=== PATIENT | male | born 1955 | race Caucasian/White ===

== ENCOUNTER 2023-08-14 08:52 | Inpatient (IN) | payer OTHER ==
[2023-08-11 09:54] LABS: Absolute Eosinophils 0.1 K/uL (0-0.5); Absolute Lymphocytes (CBC) 1.7 K/uL (0.7-4.9); Absolute Monocytes 0.7 K/uL (0.1-1.3); Basophils % 0.5 % (0-1.3); Eosinophils % 1.9 % (0-4.4); Hemoglobin 17.9 g/dL (13.6-17.9); Lymphocytes % 22.4 % (15.3-44.8); MCHC 34.4 g/dL (32.0-36.0); Monocytes % 8.9 % (3.3-12.3); Neutrophils % 66.3 % (41.7-73.7); Platelets 206 thou/uL (152-406); RBC Red Blood Cell Count 5.41 M/uL (4.33-5.43); Red Cell Distribution Width 12.2 % (12.1-15.2)
[2023-08-11 10:10] LABS: PT Prothrombin Time 10.1 SECONDS (9.5-12.5); PTT, Activated Partial Thromb 34.1 SECONDS (24.3-36.9); Protime INR 0.92
--- NOTE | 2023-08-11 10:13 | RAD REPORT ---
EXAM DESCRIPTION: RAD - Chest Pa And Lat (2 Views) - 08/11/2023 9:53 am CLINICAL HISTORY: Pre op pending heart catheterization Chest pain. COMPARISON: No comparisons FINDINGS: The lungs are clear. The heart is normal in size. No displaced fractures. IMPRESSION: No acute or concerning finding suspected. The [employer]PSTF recommends annual screening for lung cancer with low-dose CT (LDCT) in adults aged 50 to 80 years who have a 20 pack-year smoking history and currently smoke or have quit within the past 15 years.
[2023-08-14] MEDS: NA CHLORIDE 0.9% 500 ML ONE (09:20)
[2023-08-14] MEDS ORDERED: HEPA 1000U/500MLS 2,000 UNIT/1,000 ML BAG IV ONE (12:45)
[2023-08-14] MEDS ORDERED: LIDOCAINE 1% 20 ML MDV ONE (12:45)
[2023-08-14] MEDS ORDERED: FENTANYL CITR 100 MCG/2 ML ONE (12:46)
[2023-08-14] MEDS ORDERED: VERAPAMIL HCL 10 MG/4 ML VIAL IV ONE (12:46)
[2023-08-14] MEDS ORDERED: TICAGRELOR 90 MG TABLET PO ONE ×2 (12:47→20:06)
[2023-08-14] MEDS ORDERED: MIDAZOLAM HCL 2 MG/2 ML INJ ONE (12:47)
[2023-08-14] MEDS ORDERED: HEPARIN 5000 UNIT/ML 1 ML VIAL ONE (12:47)
[2023-08-14] MEDS ORDERED: HEPARIN 10,000 UNIT/10 ML VIAL IV ONE ×2 (12:47→15:16)
[2023-08-14] MEDS ORDERED: CLOPIDOGREL 75 MG TABLET ONE (12:47)
[2023-08-14] MEDS ORDERED: METHYLPREDNISOLONE 125 MG INJ ONE (12:48)
[2023-08-14] MEDS ORDERED: DIPHENHYDRAMINE 50 MG/ML VIAL ONE (12:48)
[2023-08-14] MEDS ORDERED: ASPIRIN 325 MG TAB ONE (12:48)
[2023-08-14] MEDS ORDERED: NITROGLYCERIN/D5W 50 MG/250 ML BTL IV ONE (12:49)
[2023-08-14] MEDS ORDERED: D5W 250 ML IV ONE (14:50)
[2023-08-14] MEDS ORDERED: NITROPRUSSIDE 50 MG VIAL IV ONE (14:51)
[2023-08-14] MEDS ORDERED: ADENOSINE 6 MG/ 2ML VIAL IV ONE (15:03)
[2023-08-14] MEDS ORDERED: NA CHLORIDE 0.9% 500 ML ONE (15:06)
[2023-08-14] MEDS ORDERED: FAMOTIDINE 20 MG TAB ONE (15:23)
[2023-08-14] MEDS ORDERED: ONDANSETRON 4 MG/2 ML VIAL ONE (15:24)
[2023-08-14] MEDS ORDERED: NITROGLYCERIN 0.4 MG/TAB SL ONE (15:27)
[2023-08-14] MEDS: NITROGLYCERIN 1 GM PKT TD ONE (15:52)
--- OUTSIDE RECORDS SUMMARY | 2023-08-14 16:04 | XMS REPORT | Continuity of Care Document ---
Author Name Unknown Address [address] [place] [address] [facility] thconnect Address [address] [facility] [address] [place] [address] Care Team Providers Care Kitchen Assistant Name Role Phone Tom Beard Attending Clinician Unavailable Adriana MIKE Attending Clinician Unavailable Payers Payer Name Policy Type Policy Number Effective Date Expirati on Date Source [place] [address] [id number] 2017 00:00:00 [facility] Problems Condition Name Condition Details Condition Category Status Onset Date Resolution Date Last Treatment Date Treating Clinician Comments Source [id number] History of melanoma Problem [facility] Type II diabetes mellitus without complicati on Controlled type 2 diabetes mellitus without complicati on, without long-term current use of insulin Problem [facility] [id number] Subclinica l hypothyroi dism Problem [facility] [id number] 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, without long-term current use of insulin Problem [facility] [id number] Diabetic polyneurop athy associated with type 2 diabetes mellitus Problem [facility] Obesity Obesity (BMI 30-39.9) Problem [facility] [id number] Skin lesion of left leg Problem [facility] Adult health examinatio n Blood tests for routine general physical examinatio n Problem [facility] [id number] Hyperglyce ike Problem [facility] [id number] Encounter for general adult medical examinatio n without abnormal findings Problem [facility] Hyperlipid emia Other hyperlipid emia Problem [facility] [id number] Paresthesi a of skin Problem [facility] Hypertensi on Hypertensi on Problem [facility] Screening for malignant neoplasm of prostate Prostate cancer screening Problem [facility] [id number] Nocturia Problem Commo n [facility] [id number] Benign prostatic hyperplasi a with lower urinary tract symptoms Problem [facility] [id number] Left leg claudicati on Problem [facility] Social History Social Habit Start Date Stop Date Quantity Comments Source History of Tobacco Use [facility] Sex Assigned At [facility] Smoking Status Start Date Stop Date Source Never Smoker [facility] Medications Ordered Medication Name Filled Medication Name Start Date Stop Date Current Medication? Ordering Clinician Indication Dosage Frequency Signature (SIG) Comments Components Source Ozempic (2 MG/DOSE) 8 MG/3ML Ozempic (2 MG/DOSE) 8 MG/3ML 2022-06 0-09 00:00: 00 No Ozempic (2 MG/DOSE) 8 MG/3ML Ozempic (2 MG/DOSE) 8 MG/3ML Ozempic (2 MG/DOSE) 8 MG/3ML 2022-06 0-09 00:00: 00 No Ozempic (2 MG/DOSE) 8 MG/3ML Ozempic (2 MG/DOSE) 8 MG/3ML Ozempic (2 MG/DOSE) 8 MG/3ML 2022-06 0-09 00:00: 00 No Ozempic (2 MG/DOSE) 8 MG/3ML Ozempic (2 MG/DOSE) 8 MG/3ML Ozempic (2 MG/DOSE) 8 MG/3ML 2022-06 0-09 00:00: 00 No Ozempic (2 MG/DOSE) 8 MG/3ML Ozempic (2 MG/DOSE) 8 MG/3ML Ozempic (2 MG/DOSE) 8 MG/3ML 2023-1 0-09 00:00: 00 No Ozempic (2 MG/DOSE) 8 MG/3ML Ozempic (2 MG/DOSE) 8 MG/3ML Ozempic (2 MG/DOSE) 8 MG/3ML 2023-1 009 00:00: 00 No Ozempic (2 MG/DOSE) 8 MG/3ML Ozempic (2 MG/DOSE) 8 MG/3ML Ozempic (2 MG/DOSE) 8 MG/3ML 2023-1 009 00:00: 00 No Ozempic (2 MG/DOSE) 8 MG/3ML Ozempic (2 MG/DOSE) 8 MG/3ML Ozempic (2 MG/DOSE) 8 MG/3ML 2023-1 009 00:00: 00 No Ozempic (2 MG/DOSE) 8 MG/3ML Ozempic (2 MG/DOSE) 8 MG/3ML Ozempic (2 MG/DOSE) 8 MG/3ML 2023-1 009 00:00: 00 No Ozempic (2 MG/DOSE) 8 MG/3ML Ozempic (2 MG/DOSE) 8 MG/3ML Ozempic (2 MG/DOSE) 8 MG/3ML 2023-1 009 00:00: 00 No Ozempic (2 MG/DOSE) 8 MG/3ML Ozempic (1 MG/DOSE) 4 MG/3ML Ozempic (1 MG/DOSE) 4 MG/3ML 2023-0 8-04 00:00: 00 No Ozempic (1 MG/DOSE) 4 MG/3ML Ozempic (1 MG/DOSE) 4 MG/3ML Ozempic (1 MG/DOSE) 4 MG/3ML 2023-0 8-04 00:00: 00 No Ozempic (1 MG/DOSE) 4 MG/3ML Ozempic (1 MG/DOSE) 4 MG/3ML Ozempic (1 MG/DOSE) 4 MG/3ML 2023-0 8-04 00:00: 00 No Ozempic (1 MG/DOSE) 4 MG/3ML Triamcinolo ne Acetonide 0.1 % Triamcinolo ne Acetonide 0.1 % 3-0 -06 00:00: 00 No 1{appli cation} BID Triamcinol one Acetonide 0.1 % Triamcinolo ne Acetonide 0.1 % Triamcinolo ne Acetonide 0.1 % 2022-0 1- 00:00: 00 No 1{appli cation} BID Triamcinol one Acetonide 0.1 % Triamcinolo ne Acetonide 0.1 % Triamcinolo ne Acetonide 0.1 % 3-0 - 00:00: 00 No 1{appli cation} BID Triamcinol one Acetonide 0.1 % Triamcinolo ne Acetonide 0.1 % Triamcinolo ne Acetonide 0.1 % 2022-0 - 00:00: 00 No 1{appli cation} BID Triamcinol one Acetonide 0.1 % Triamcinolo ne Acetonide 0.1 % Triamcinolo ne Acetonide 0.1 % 2022-0 - 00:00: 00 No 1{appli cation} BID Triamcinol one Acetonide 0.1 % Triamcinolo ne Acetonide 0.1 % Triamcinolo ne Acetonide 0.1 % 2022-0 - 00:00: 00 No 1{appli cation} BID Triamcinol one Acetonide 0.1 % Triamcinolo ne Acetonide 0.1 % Triamcinolo ne Acetonide 0.1 % 2022-0 - 00:00: 00 No 1{appli cation} BID Triamcinol one Acetonide 0.1 % Triamcinolo ne Acetonide 0.1 % Triamcinolo ne Acetonide 0.1 % 2022-0 - 00:00: 00 No 1{appli cation} BID Triamcinol one Acetonide 0.1 % Triamcinolo ne Acetonide 0.1 % Triamcinolo ne Acetonide 0.1 % 3-0 1- 00:00: 00 No 1{appli cation} BID Triamcinol one Acetonide 0.1 % Triamcinolo ne Acetonide 0.1 % Triamcinolo ne Acetonide 0.1 % 06-07 00:00: 00 No 1{appli cation} BID Triamcinol one Acetonide 0.1 % Triamcinolo ne Acetonide 0.1 % Triamcinolo ne Acetonide 0.1 % 06-07 00:00: 00 No 1{appli cation} BID Triamcinol one Acetonide 0.1 % methylPREDN ISolone 4 MG methylPREDN ISolone 4 MG 06-07 00:00: 00 06-13 00:00 :00 No QD methylPRED NISolone 4 MG Tamsulosin HCl 0.4 MG Tamsulosin HCl 0.4 MG 2020-06 00:00: 00 11-04 00:00 :00 No 1{capsu le} QD Tamsulosin HCl 0.4 MG Terbinafine HCl Terbinafine HCl 2018-06 1 00:00: 00 07-04 00:00 :00 No Na Mike 1 tablet [facility] Glyxambi Glyxambi 7- 00:00: 00 06-28 00:00 :00 No Na Mike 1 [facility] Jardiance Jardiance Yes Na Mike TAKE ONE (1) TABLET(S) BY MOUTH ONCE A DAY IN THE MORNING. [facility] Glimepiride Glimepiride Yes Na Mike 1 tablet with breakfast or the first main meal of the day [facility] Hyzaar Hyzaar Yes Na Mike 1 tablet [facility] Lovastatin Lovastatin Yes Na Mike 1 tablet with a meal [facility] FreeStyle Lite Test FreeStyle Lite Test Yes Na Mike USE DIRECTED TO CHECK GLUCOSE ONCE A DAY. [facility] Metformin HCl Metformin HCl Yes Na Mike 1 tablet with meals [facility] Metoprolol Succinate ER Metoprolol Succinate ER Yes Na Mike 1 tablet [facility] Metformin HCl Metformin HCl Yes Na Mike 1 tablet with meals [facility] Metoprolol Succinate ER 50 MG Metoprolol Succinate ER 50 MG No 1{table t} QD Metoprolol Succinate ER 50 MG Glimepiride 4 MG Glimepiride 4 MG No Glimepirid e 4 MG Losartan Potassium-H CTZ 100-25 MG Losartan Potassium-H CTZ 100-25 MG No Losartan Potassium- HCTZ 100-25 MG Vitamin C Vitamin C No Vitamin C FreeStyle Lite Test - FreeStyle Lite Test - No FreeStyle Lite Test - Glyxambi 25-5 MG Glyxambi 25-5 MG No Glyxambi 25-5 MG Vitamin D Vitamin D No Vitamin D Multivitami n - Multivitami n - No 1{table t} QD Multivitam in - metFORMIN HCl 1000 MG metFORMIN HCl 1000 MG No 1{table t_with_ meals} BID metFORMIN HCl 1000 MG Glimepiride 4 MG Glimepiride 4 MG No 1{table t_with_ breakfa st_or_t he_firs t_main_ meal_of _the_da y} QD Glimepirid e 4 MG Metoprolol Succinate ER 50 MG Metoprolol Succinate ER 50 MG No Metoprolol Succinate ER 50 MG Fish Oil 500 MG Fish Oil 500 MG No 1{capsu le} BID Fish Oil 500 MG Vitamin K2 Vitamin K2 No Vitamin K2 metFORMIN HCl 1000 MG metFORMIN HCl 1000 MG No metFORMIN HCl 1000 MG Hyzaar 100-25 MG Hyzaar 100-25 MG No 1{table t} QD Hyzaar 100-25 MG Metoprolol Succinate ER 50 MG Metoprolol Succinate ER 50 MG No 1{table t} QD Metoprolol Succinate ER 50 MG Glimepiride 4 MG Glimepiride 4 MG No Glimepirid e 4 MG Losartan Potassium-H CTZ 100-25 MG Losartan Potassium-H CTZ 100-25 MG No Losartan Potassium- HCTZ 100-25 MG Vitamin C Vitamin C No Vitamin C FreeStyle Lite Test - FreeStyle Lite Test - No FreeStyle Lite Test - Glyxambi 25-5 MG Glyxambi 25-5 MG No Glyxambi 25-5 MG Vitamin D Vitamin D No Vitamin D Multivitami n - Multivitami n - No 1{table t} QD Multivitam in - metFORMIN HCl 1000 MG metFORMIN HCl 1000 MG No 1{table t_with_ meals} BID metFORMIN HCl 1000 MG Glimepiride 4 MG Glimepiride 4 MG No 1{table t_with_ breakfa st_or_t he_firs t_main_ meal_of _the_da y} QD Glimepirid e 4 MG Metoprolol Succinate ER 50 MG Metoprolol Succinate ER 50 MG No Metoprolol Succinate ER 50 MG Fish Oil 500 MG Fish Oil 500 MG No 1{capsu le} BID Fish Oil 500 MG Vitamin K2 Vitamin K2 No Vitamin K2 metFORMIN HCl 1000 MG metFORMIN HCl 1000 MG No metFORMIN HCl 1000 MG Hyzaar 100-25 MG Hyzaar 100-25 MG No 1{table t} QD Hyzaar 100-25 MG Fish Oil 500 MG Fish Oil 500 MG No 1{capsu le} BID Fish Oil 500 MG Metoprolol Succinate ER 50 MG Metoprolol Succinate ER 50 MG No 1{table t} QD Metoprolol Succinate ER 50 MG Multivitami n - Multivitami n - No 1{table t} QD Multivitam in - Vitamin K2 Vitamin K2 No Vitamin K2 Glimepiride 4 MG Glimepiride 4 MG No 1{table t_with_ breakfa st_or_t he_firs t_main_ meal_of _the_da y} QD Glimepirid e 4 MG Vitamin C Vitamin C No Vitamin C metFORMIN HCl 1000 MG metFORMIN HCl 1000 MG No 1{table t_with_ meals} BID metFORMIN HCl 1000 MG Losartan Potassium-H CTZ 100-25 MG Losartan Potassium-H CTZ 100-25 MG No Losartan Potassium- HCTZ 100-25 MG Vitamin D Vitamin D No Vitamin D Glyxambi 25-5 MG Glyxambi 25-5 MG No Glyxambi 25-5 MG FreeStyle Lite Test - FreeStyle Lite Test - No FreeStyle Lite Test - FreeStyle Lite Test - FreeStyle Lite Test - No FreeStyle Lite Test - Gabapentin 100 MG Gabapentin 100 MG No 1{capsu le} Gabapentin 100 MG Multivitami n - Multivitami n - No 1{table t} QD Multivitam in - Losartan Potassium-H CTZ 100-25 MG Losartan Potassium-H CTZ 100-25 MG No Losartan Potassium- HCTZ 100-25 MG Fish Oil 500 MG Fish Oil 500 MG No 1{capsu le} BID Fish Oil 500 MG metFORMIN HCl 1000 MG metFORMIN HCl 1000 MG No 1{table t_with_ a_meal} BID metFORMIN HCl 1000 MG Glimepiride 4 MG Glimepiride 4 MG No 1{table t_with_ meals} BID Glimepirid e 4 MG Vitamin K2 Vitamin K2 No Vitamin K2 Jardiance 25 MG Jardiance 25 MG No 1{table t} QD Jardiance 25 MG Hyzaar 100-25 MG Hyzaar 100-25 MG No 1{table t} QD Hyzaar 100-25 MG Vitamin D Vitamin D No Vitamin D Vitamin C Vitamin C No Vitamin C Metoprolol Succinate ER 50 MG Metoprolol Succinate ER 50 MG No 1{table t} QD Metoprolol Succinate ER 50 MG FreeStyle Lite Test - FreeStyle Lite Test - No FreeStyle Lite Test - Gabapentin 100 MG Gabapentin 100 MG No 1{capsu le} Gabapentin 100 MG Multivitami n - Multivitami n - No 1{table t} QD Multivitam in - Losartan Potassium-H CTZ 100-25 MG Losartan Potassium-H CTZ 100-25 MG No Losartan Potassium- HCTZ 100-25 MG Fish Oil 500 MG Fish Oil 500 MG No 1{capsu le} BID Fish Oil 500 MG metFORMIN HCl 1000 MG metFORMIN HCl 1000 MG No 1{table t_with_ a_meal} BID metFORMIN HCl 1000 MG Glimepiride 4 MG Glimepiride 4 MG No 1{table t_with_ meals} BID Glimepirid e 4 MG Vitamin K2 Vitamin K2 No Vitamin K2 Jardiance 25 MG Jardiance 25 MG No 1{table t} QD Jardiance 25 MG Hyzaar 100-25 MG Hyzaar 100-25 MG No 1{table t} QD Hyzaar 100-25 MG Vitamin D Vitamin D No Vitamin D Vitamin C Vitamin C No Vitamin C Metoprolol Succinate ER 50 MG Metoprolol Succinate ER 50 MG No 1{table t} QD Metoprolol Succinate ER 50 MG FreeStyle Lite Test - FreeStyle Lite Test - No FreeStyle Lite Test - Gabapentin 100 MG Gabapentin 100 MG No 1{capsu le} Gabapentin 100 MG Multivitami n - Multivitami n - No 1{table t} QD Multivitam in - Losartan Potassium-H CTZ 100-25 MG Losartan Potassium-H CTZ 100-25 MG No Losartan Potassium- HCTZ 100-25 MG Fish Oil 500 MG Fish Oil 500 MG No 1{capsu le} BID Fish Oil 500 MG metFORMIN HCl 1000 MG metFORMIN HCl 1000 MG No 1{table t_with_ a_meal} BID metFORMIN HCl 1000 MG Glimepiride 4 MG Glimepiride 4 MG No 1{table t_with_ meals} BID Glimepirid e 4 MG Vitamin K2 Vitamin K2 No Vitamin K2 Jardiance 25 MG Jardiance 25 MG No 1{table t} QD Jardiance 25 MG Hyzaar 100-25 MG Hyzaar 100-25 MG No 1{table t} QD Hyzaar 100-25 MG Vitamin D Vitamin D No Vitamin D Vitamin C Vitamin C No Vitamin C Metoprolol Succinate ER 50 MG Metoprolol Succinate ER 50 MG No 1{table t} QD Metoprolol Succinate ER 50 MG FreeStyle Lite Test - FreeStyle Lite Test - No FreeStyle Lite Test - Metoprolol Succinate ER 50 MG Metoprolol Succinate ER 50 MG No 1{table t} QD Metoprolol Succinate ER 50 MG Ozempic (1 MG/DOSE) 4 MG/3ML Ozempic (1 MG/DOSE) 4 MG/3ML No Ozempic (1 MG/DOSE) 4 MG/3ML Multivitami n - Multivitami n - No 1{table t} QD Multivitam in - Losartan Potassium-H CTZ 100-25 MG Losartan Potassium-H CTZ 100-25 MG No Losartan Potassium- HCTZ 100-25 MG Fish Oil 500 MG Fish Oil 500 MG No 1{capsu le} BID Fish Oil 500 MG Glimepiride 4 MG Glimepiride 4 MG No 1{table t_with_ meals} BID Glimepirid e 4 MG Gabapentin 100 MG Gabapentin 100 MG No 1{capsu le} Gabapentin 100 MG Vitamin K2 Vitamin K2 No Vitamin K2 Hyzaar 100-25 MG Hyzaar 100-25 MG No 1{table t} QD Hyzaar 100-25 MG Jardiance 25 MG Jardiance 25 MG No 1{table t} QD Jardiance 25 MG metFORMIN HCl 1000 MG metFORMIN HCl 1000 MG No 1{table t_with_ a_meal} BID metFORMIN HCl 1000 MG Vitamin D Vitamin D No Vitamin D Vitamin C Vitamin C No Vitamin C FreeStyle Lite Test - FreeStyle Lite Test - No FreeStyle Lite Test - Metoprolol Succinate ER 50 MG Metoprolol Succinate ER 50 MG No 1{table t} QD Metoprolol Succinate ER 50 MG Ozempic (1 MG/DOSE) 4 MG/3ML Ozempic (1 MG/DOSE) 4 MG/3ML No Ozempic (1 MG/DOSE) 4 MG/3ML Multivitami n - Multivitami n - No 1{table t} QD Multivitam in - Losartan Potassium-H CTZ 100-25 MG Losartan Potassium-H CTZ 100-25 MG No Losartan Potassium- HCTZ 100-25 MG Fish Oil 500 MG Fish Oil 500 MG No 1{capsu le} BID Fish Oil 500 MG Glimepiride 4 MG Glimepiride 4 MG No 1{table t_with_ meals} BID Glimepirid e 4 MG Gabapentin 100 MG Gabapentin 100 MG No 1{capsu le} Gabapentin 100 MG Vitamin K2 Vitamin K2 No Vitamin K2 Hyzaar 100-25 MG Hyzaar 100-25 MG No 1{table t} QD Hyzaar 100-25 MG Jardiance 25 MG Jardiance 25 MG No 1{table t} QD Jardiance 25 MG metFORMIN HCl 1000 MG metFORMIN HCl 1000 MG No 1{table t_with_ a_meal} BID metFORMIN HCl 1000 MG Vitamin D Vitamin D No Vitamin D Vitamin C Vitamin C No Vitamin C FreeStyle Lite Test - FreeStyle Lite Test - No FreeStyle Lite Test - Metoprolol Succinate ER 50 MG Metoprolol Succinate ER 50 MG No 1{table t} QD Metoprolol Succinate ER 50 MG Ozempic (1 MG/DOSE) 4 MG/3ML Ozempic (1 MG/DOSE) 4 MG/3ML No Ozempic (1 MG/DOSE) 4 MG/3ML Multivitami n - Multivitami n - No 1{table t} QD Multivitam in - Losartan Potassium-H CTZ 100-25 MG Losartan Potassium-H CTZ 100-25 MG No Losartan Potassium- HCTZ 100-25 MG Fish Oil 500 MG Fish Oil 500 MG No 1{capsu le} BID Fish Oil 500 MG Glimepiride 4 MG Glimepiride 4 MG No 1{table t_with_ meals} BID Glimepirid e 4 MG Gabapentin 100 MG Gabapentin 100 MG No 1{capsu le} Gabapentin 100 MG Vitamin K2 Vitamin K2 No Vitamin K2 Hyzaar 100-25 MG Hyzaar 100-25 MG No 1{table t} QD Hyzaar 100-25 MG Jardiance 25 MG Jardiance 25 MG No 1{table t} QD Jardiance 25 MG metFORMIN HCl 1000 MG metFORMIN HCl 1000 MG No 1{table t_with_ a_meal} BID metFORMIN HCl 1000 MG Vitamin D Vitamin D No Vitamin D Vitamin C Vitamin C No Vitamin C Metoprolol Succinate ER 50 MG Metoprolol Succinate ER 50 MG No 1{table t} QD Metoprolol Succinate ER 50 MG Ozempic (1 MG/DOSE) 4 MG/3ML Ozempic (1 MG/DOSE) 4 MG/3ML No Ozempic (1 MG/DOSE) 4 MG/3ML Multivitami n - Multivitami n - No 1{table t} QD Multivitam in - Losartan Potassium-H CTZ 100-25 MG Losartan Potassium-H CTZ 100-25 MG No Losartan Potassium- HCTZ 100-25 MG Fish Oil 500 MG Fish Oil 500 MG No 1{capsu le} BID Fish Oil 500 MG FreeStyle Lite Test - FreeStyle Lite Test - No FreeStyle Lite Test - Gabapentin 100 MG Gabapentin 100 MG No 1{capsu le} Gabapentin 100 MG Vitamin K2 Vitamin K2 No Vitamin K2 metFORMIN HCl 1000 MG metFORMIN HCl 1000 MG No 1{table t_with_ a_meal} BID metFORMIN HCl 1000 MG Jardiance 25 MG Jardiance 25 MG No 1{table t} QD Jardiance 25 MG Glimepiride 4 MG Glimepiride 4 MG No 1{table t_with_ meals} BID Glimepirid e 4 MG Vitamin D Vitamin D No Vitamin D Vitamin C Vitamin C No Vitamin C Hyzaar 100-25 MG Hyzaar 100-25 MG No 1{table t} QD Hyzaar 100-25 MG Metoprolol Succinate ER 50 MG Metoprolol Succinate ER 50 MG No 1{table t} QD Metoprolol Succinate ER 50 MG Ozempic (1 MG/DOSE) 4 MG/3ML Ozempic (1 MG/DOSE) 4 MG/3ML No Ozempic (1 MG/DOSE) 4 MG/3ML Multivitami n - Multivitami n - No 1{table t} QD Multivitam in - Losartan Potassium-H CTZ 100-25 MG Losartan Potassium-H CTZ 100-25 MG No Losartan Potassium- HCTZ 100-25 MG Fish Oil 500 MG Fish Oil 500 MG No 1{capsu le} BID Fish Oil 500 MG FreeStyle Lite Test - FreeStyle Lite Test - No FreeStyle Lite Test - Gabapentin 100 MG Gabapentin 100 MG No 1{capsu le} Gabapentin 100 MG Vitamin K2 Vitamin K2 No Vitamin K2 metFORMIN HCl 1000 MG metFORMIN HCl 1000 MG No 1{table t_with_ a_meal} BID metFORMIN HCl 1000 MG Jardiance 25 MG Jardiance 25 MG No 1{table t} QD Jardiance 25 MG Glimepiride 4 MG Glimepiride 4 MG No Glimepirid e 4 MG Glimepiride 4 MG Glimepiride 4 MG No 1{table t_with_ meals} BID Glimepirid e 4 MG Vitamin D Vitamin D No Vitamin D Vitamin C Vitamin C No Vitamin C Hyzaar 100-25 MG Hyzaar 100-25 MG No 1{table t} QD Hyzaar 100-25 MG Hyzaar 100-25 MG Hyzaar 100-25 MG No Hyzaar 100-25 MG Metoprolol Succinate ER 50 MG Metoprolol Succinate ER 50 MG No 1{table t} QD Metoprolol Succinate ER 50 MG Ozempic (1 MG/DOSE) 4 MG/3ML Ozempic (1 MG/DOSE) 4 MG/3ML No Ozempic (1 MG/DOSE) 4 MG/3ML Multivitami n - Multivitami n - No 1{table t} QD Multivitam in - Losartan Potassium-H CTZ 100-25 MG Losartan Potassium-H CTZ 100-25 MG No Losartan Potassium- HCTZ 100-25 MG Fish Oil 500 MG Fish Oil 500 MG No 1{capsu le} BID Fish Oil 500 MG FreeStyle Lite Test - FreeStyle Lite Test - No FreeStyle Lite Test - Gabapentin 100 MG Gabapentin 100 MG No 1{capsu le} Gabapentin 100 MG metFORMIN HCl 1000 MG metFORMIN HCl 1000 MG No BID metFORMIN HCl 1000 MG Vitamin K2 Vitamin K2 No Vitamin K2 metFORMIN HCl 1000 MG metFORMIN HCl 1000 MG No 1{table t_with_ a_meal} BID metFORMIN HCl 1000 MG Jardiance 25 MG Jardiance 25 MG No 1{table t} QD Jardiance 25 MG Glimepiride 4 MG Glimepiride 4 MG No 1{table t_with_ meals} BID Glimepirid e 4 MG Vitamin D Vitamin D No Vitamin D Vitamin C Vitamin C No Vitamin C Hyzaar 100-25 MG Hyzaar 100-25 MG No 1{table t} QD Hyzaar 100-25 MG Metoprolol Succinate ER 50 MG Metoprolol Succinate ER 50 MG No QD Metoprolol Succinate ER 50 MG Metoprolol Succinate ER 50 MG Metoprolol Succinate ER 50 MG No 1{table t} QD Metoprolol Succinate ER 50 MG Metoprolol Succinate ER 50 MG Metoprolol Succinate ER 50 MG No 1{table t} QD Metoprolol Succinate ER 50 MG metFORMIN HCl 1000 MG metFORMIN HCl 1000 MG No 1{table t_with_ a_meal} BID metFORMIN HCl 1000 MG Multivitami n - Multivitami n - No 1{table t} QD Multivitam in - Losartan Potassium-H CTZ 100-25 MG Losartan Potassium-H CTZ 100-25 MG No Losartan Potassium- HCTZ 100-25 MG metFORMIN HCl 1000 MG metFORMIN HCl 1000 MG No 1{table t_with_ meals} BID metFORMIN HCl 1000 MG Fish Oil 500 MG Fish Oil 500 MG No 1{capsu le} BID Fish Oil 500 MG Ozempic (1 MG/DOSE) 4 MG/3ML Ozempic (1 MG/DOSE) 4 MG/3ML No Ozempic (1 MG/DOSE) 4 MG/3ML Jardiance 25 MG Jardiance 25 MG No 1{table t} QD Jardiance 25 MG Vitamin K2 Vitamin K2 No Vitamin K2 FreeStyle Lite Test - FreeStyle Lite Test - No FreeStyle Lite Test - Glimepiride 4 MG Glimepiride 4 MG No 1{table t_with_ meals} BID Glimepirid e 4 MG Gabapentin 100 MG Gabapentin 100 MG No 1{capsu le} Gabapentin 100 MG Vitamin D Vitamin D No Vitamin D Vitamin C Vitamin C No Vitamin C Hyzaar 100-25 MG Hyzaar 100-25 MG No 1{table t} QD Hyzaar 100-25 MG FreeStyle Lite Test - FreeStyle Lite Test - No FreeStyle Lite Test - Hyzaar 100-25 MG Hyzaar 100-25 MG No 1{table t} QD Hyzaar 100-25 MG Glimepiride 4 MG Glimepiride 4 MG No 1{table t_with_ breakfa st_or_t he_firs t_main_ meal_of _the_da y} QD Glimepirid e 4 MG Fish Oil 500 MG Fish Oil 500 MG No 1{capsu le} BID Fish Oil 500 MG Metoprolol Succinate ER 100 MG Metoprolol Succinate ER 100 MG No 1{table t} QD Metoprolol Succinate ER 100 MG Vitamin C Vitamin C No Vitamin C Lovastatin 10 MG Lovastatin 10 MG No 1{table t_with_ a_meal} QD Lovastatin 10 MG Jardiance 25 MG Jardiance 25 MG No 1{table t} QD Jardiance 25 MG Vitamin D Vitamin D No Vitamin D FreeStyle Lite Test - FreeStyle Lite Test - No FreeStyle Lite Test - Jardiance 25 MG Jardiance 25 MG No 1{table t} QD Jardiance 25 MG Losartan Potassium-H CTZ 100-25 MG Losartan Potassium-H CTZ 100-25 MG No Losartan Potassium- HCTZ 100-25 MG Vitamin K2 Vitamin K2 No Vitamin K2 metFORMIN HCl 1000 MG metFORMIN HCl 1000 MG No 1{table t_with_ a_meal} BID metFORMIN HCl 1000 MG Hyzaar 100-25 MG Hyzaar 100-25 MG No 1{table t} QD Hyzaar 100-25 MG Glimepiride 4 MG Glimepiride 4 MG No 1{table t_with_ meals} BID Glimepirid e 4 MG Glimepiride 4 MG Glimepiride 4 MG No 1{table t_with_ meals} BID Glimepirid e 4 MG Jardiance 25 MG Jardiance 25 MG No Jardiance 25 MG metFORMIN HCl 1000 MG metFORMIN HCl 1000 MG No 1{table t_with_ a_meal} BID metFORMIN HCl 1000 MG Ozempic (2 MG/DOSE) 8 MG/3ML Ozempic (2 MG/DOSE) 8 MG/3ML No Ozempic (2 MG/DOSE) 8 MG/3ML Glyxambi 25mg/5mg Glyxambi 25mg/5mg No Glyxambi 25mg/5mg Fish Oil 500 MG Fish Oil 500 MG No 1{capsu le} BID Fish Oil 500 MG Metoprolol Succinate ER 100 MG Metoprolol Succinate ER 100 MG No 1{table t} QD Metoprolol Succinate ER 100 MG Vitamin C Vitamin C No Vitamin C Jardiance 25 MG Jardiance 25 MG No 1{table t} QD Jardiance 25 MG Vitamin D Vitamin D No Vitamin D FreeStyle Lite Test - FreeStyle Lite Test - No FreeStyle Lite Test - Jardiance 25 MG Jardiance 25 MG No 1{table t} QD Jardiance 25 MG Losartan Potassium-H CTZ 100-25 MG Losartan Potassium-H CTZ 100-25 MG No Losartan Potassium- HCTZ 100-25 MG Vitamin K2 Vitamin K2 No Vitamin K2 metFORMIN HCl 1000 MG metFORMIN HCl 1000 MG No 1{table t_with_ a_meal} BID metFORMIN HCl 1000 MG Hyzaar 100-25 MG Hyzaar 100-25 MG No 1{table t} QD Hyzaar 100-25 MG Glimepiride 4 MG Glimepiride 4 MG No 1{table t_with_ meals} BID Glimepirid e 4 MG Glimepiride 4 MG Glimepiride 4 MG No 1{table t_with_ meals} BID Glimepirid e 4 MG metFORMIN HCl 1000 MG metFORMIN HCl 1000 MG No 1{table t_with_ a_meal} BID metFORMIN HCl 1000 MG Ozempic (2 MG/DOSE) 8 MG/3ML Ozempic (2 MG/DOSE) 8 MG/3ML No Ozempic (2 MG/DOSE) 8 MG/3ML Metoprolol Succinate ER 50 MG Metoprolol Succinate ER 50 MG No 1{table t} QD Metoprolol Succinate ER 50 MG Glimepiride 4 MG Glimepiride 4 MG No Glimepirid e 4 MG metFORMIN HCl 1000 MG metFORMIN HCl 1000 MG No 1{table t_with_ meals} BID metFORMIN HCl 1000 MG FreeStyle Lite Test - FreeStyle Lite Test - No FreeStyle Lite Test - Losartan Potassium-H CTZ 100-25 MG Losartan Potassium-H CTZ 100-25 MG No Losartan Potassium- HCTZ 100-25 MG Vitamin C Vitamin C No Vitamin C Vitamin D Vitamin D No Vitamin D Multivitami n - Multivitami n - No 1{table t} QD Multivitam in - Glyxambi 25mg/5mg Glyxambi 25mg/5mg No Glyxambi 25mg/5mg Glimepiride 4 MG Glimepiride 4 MG No 1{table t_with_ breakfa st_or_t he_firs t_main_ meal_of _the_da y} QD Glimepirid e 4 MG Metoprolol Succinate ER 50 MG Metoprolol Succinate ER 50 MG No Metoprolol Succinate ER 50 MG Fish Oil 500 MG Fish Oil 500 MG No 1{capsu le} BID Fish Oil 500 MG Vitamin K2 Vitamin K2 No Vitamin K2 metFORMIN HCl 1000 MG metFORMIN HCl 1000 MG No metFORMIN HCl 1000 MG Hyzaar 100-25 MG Hyzaar 100-25 MG No 1{table t} QD Hyzaar 100-25 MG Immunizations Ordered Immunization Name Filled Immunization Name Date Status Comments Source Afluria Afluria 2021-04-12 11:27:00 Completed [facility] Afluria Afluria 2021-04-12 11:27:00 Completed [facility] Afluria Afluria 2021-04-12 11:27:00 Completed [facility] Afluria Afluria 2021-04-12 11:27:00 Completed [facility] Afluria Afluria 2021-04-12 11:27:00 Completed [facility] Afluria single dose Afluria single dose 09:08:00 Completed [facility] Afluria single dose Afluria single dose 09:08:00 Completed [facility] Afluria single dose Afluria single dose 09:08:00 Completed [facility] Afluria single dose Afluria single dose 09:08:00 Completed [facility] Afluria single dose Afluria single dose 09:08:00 Completed [facility] Afluria single dose Afluria single dose 00:00:00 Completed [facility] Prevnar 20 (PCV20) Prevnar 20 (PCV20) Unknown Completed [facility] FluAD Quad SD FluAD Quad SD Unknown Completed [facility] Afluria single dose Afluria single dose Unknown Completed [facility] Afluria Afluria Unknown Completed [facility] Prevnar 20 (PCV20) Prevnar 20 (PCV20) Unknown Completed [facility] FluAD Quad SD FluAD Quad SD Unknown Completed [facility] Afluria single dose Afluria single dose Unknown Completed [facility] Afluria Afluria Unknown Completed [facility] Prevnar 20 (PCV20) Prevnar 20 (PCV20) Unknown Completed [facility] FluAD Quad SD FluAD Quad SD Unknown Completed [facility] Afluria single dose Afluria single dose Unknown Completed [facility] Afluria Afluria Unknown Completed [facility] Prevnar 20 (PCV20) Prevnar 20 (PCV20) Unknown Completed [facility] FluAD Quad SD FluAD Quad SD Unknown Completed [facility] Afluria single dose Afluria single dose Unknown Completed [facility] Afluria Afluria Unknown Completed [facility] Prevnar 20 (PCV20) Prevnar 20 (PCV20) Unknown Completed [facility] FluAD Quad SD FluAD Quad SD Unknown Completed [facility] Afluria single dose Afluria single dose Unknown Completed [facility] Afluria Afluria Unknown Completed [facility] Prevnar 20 (PCV20) Prevnar 20 (PCV20) Unknown Completed [facility] FluAD Quad SD FluAD Quad SD Unknown Completed [facility] Afluria single dose Afluria single dose Unknown Completed [facility] Afluria Afluria Unknown Completed [facility] Prevnar 20 (PCV20) Prevnar 20 (PCV20) Unknown Completed [facility] FluAD Quad SD FluAD Quad SD Unknown Completed [facility] Afluria single dose Afluria single dose Unknown Completed [facility] Afluria Afluria Unknown Completed [facility] Prevnar 20 (PCV20) Prevnar 20 (PCV20) Unknown Completed [facility] FluAD Quad SD FluAD Quad SD Unknown Completed [facility] Afluria single dose Afluria single dose Unknown Completed [facility] Afluria Afluria Unknown Completed [facility] Prevnar 20 (PCV20) Prevnar 20 (PCV20) Unknown Completed [facility] Fluad (aIIV4) - SDS - 0.5mL Fluad (aIIV4) - SDS - 0.5mL Unknown Completed [facility] Afluria (IIV4) - 3 years and older - SDS - 0.5mL Afluria (IIV4) - 3 years and older - SDS - 0.5mL Unknown Completed [facility] Afluria Afluria Unknown Completed [facility] Prevnar 20 (PCV20) Prevnar 20 (PCV20) Unknown Completed [facility] Fluad (aIIV4) - SDS - 0.5mL Fluad (aIIV4) - SDS - 0.5mL Unknown Completed [facility] Afluria (IIV4) - 3 years and older - SDS - 0.5mL Afluria (IIV4) - 3 years and older - SDS - 0.5mL Unknown Completed [facility] Afluria Afluria Unknown Completed [facility] Prevnar 20 (PCV20) Prevnar 20 (PCV20) Unknown Completed [facility] Fluad (aIIV4) - SDS - 0.5mL Fluad (aIIV4) - SDS - 0.5mL Unknown Completed [facility] Afluria (IIV4) - 3 years and older - SDS - 0.5mL Afluria (IIV4) - 3 years and older - SDS - 0.5mL Unknown Completed [facility] Afluria Afluria Unknown Completed [facility] Prevnar 20 (PCV20) Prevnar 20 (PCV20) Unknown Completed [facility] Fluad (aIIV4) - SDS - 0.5mL Fluad (aIIV4) - SDS - 0.5mL Unknown Completed [facility] Afluria (IIV4) - 3 years and older - SDS - 0.5mL Afluria (IIV4) - 3 years and older - SDS - 0.5mL Unknown Completed [facility] Afluria Afluria Unknown Completed [facility] Vital Signs Vital Name Observation Time Observation Value Comments S catalina height 2023-06-09 13:20:00 69.00 [in_i] Com [facility] weight 2023-06-09 13:20:00 192 [lb_av] Comm on [facility] temperature 2023-06-09 13:20:00 98 [degF] Comm on [facility] bmi 2023-06-09 13:20:00 28.35 kg/m2 Comm on [facility] oximetry 2023-06-09 13:20:00 99 % Commo n [facility] blood pressure systolic 2023-06-09 13:20:00 150 mm[Hg] Common [facility] blood pressure diastolic 2023-06-09 13:20:00 90 mm[Hg] Common [facility] height 2023-03-10 13:20:00 69.00 [in_i] Com mon [facility] weight 2023-03-10 13:20:00 193.4 [lb_av] Co mmon [facility] temperature 2023-03-10 13:20:00 98.0 [degF] Com [facility] bmi 2023-03-10 13:20:00 28.56 kg/m2 Comm on [facility] oximetry 2023-03-10 13:20:00 98 % Commo n [facility] respiratory rate 2023-03-10 13:20:00 16 /min Common [facility] blood pressure systolic 2023-03-10 13:20:00 138 mm[Hg] [facility] blood pressure diastolic 2023-03-10 13:20:00 86 mm[Hg] [facility] height 2022-12-06 08:00:00 69.00 [in_i] Com [facility] weight 2022-12-06 08:00:00 199 [lb_av] Comm on [facility] temperature 2022-12-06 08:00:00 96.8 [degF] Com [facility] bmi 2022-12-06 08:00:00 29.38 kg/m2 Comm on [facility] blood pressure systolic 2022-12-06 08:00:00 132 mm[Hg] [facility] blood pressure diastolic 2022-12-06 08:00:00 72 mm[Hg] [facility] height 2022-08-28 09:00:00 69.00 [in_i] Com [facility] weight 2022-08-28 09:00:00 202.1 [lb_av] Co mmon [facility] temperature 2022-08-28 09:00:00 97.7 [degF] Com [facility] bmi 2022-08-28 09:00:00 29.84 kg/m2 Comm on [facility] oximetry 2022-08-28 09:00:00 98 % Commo n [facility] respiratory rate 2022-08-28 09:00:00 16 /min [facility] blood pressure systolic 2022-08-28 09:00:00 138 mm[Hg] Common [facility] blood pressure diastolic 2022-08-28 09:00:00 76 mm[Hg] Common [facility] height 2022-08-28 09:20:00 69.00 [in_i] Com [facility] weight 2022-08-28 09:20:00 202.1 [lb_av] Co [facility] temperature 2022-08-28 09:20:00 97.7 [degF] Com [facility] bmi 2022-08-28 09:20:00 29.84 kg/m2 Comm on [facility] oximetry 2022-08-28 09:20:00 98 % Commo n [facility] respiratory rate 2022-08-28 09:20:00 16 /min [facility] blood pressure systolic 2022-08-28 09:20:00 138 mm[Hg] Common [facility] blood pressure diastolic 2022-08-28 09:20:00 76 mm[Hg] [facility] height 2022-06-07 13:40:00 69.00 [in_i] Com [facility] weight 2022-06-07 13:40:00 199.5 [lb_av] Co [facility] temperature 2022-06-07 13:40:00 97.3 [degF] Com [facility] bmi 2022-06-07 13:40:00 29.46 kg/m2 Comm on [facility] oximetry 2022-06-07 13:40:00 95 % Commo n [facility] respiratory rate 2022-06-07 13:40:00 17 /min Common [facility] blood pressure systolic 2022-06-07 13:40:00 138 mm[Hg] Common [facility] blood pressure diastolic 2022-06-07 13:40:00 82 mm[Hg] [facility] height 2021-11-06 11:00:00 69.00 [in_i] Com [facility] weight 2021-11-06 11:00:00 194 [lb_av] Comm on [facility] temperature 2021-11-06 11:00:00 97.6 [degF] Com mon [facility] bmi 2021-11-06 11:00:00 28.65 kg/m2 Comm on [facility] oximetry 2021-11-06 11:00:00 100 % Commo n [facility] respiratory rate 2021-11-06 11:00:00 18 /min Common [facility] blood pressure systolic 2021-11-06 11:00:00 157 mm[Hg] [facility] blood pressure diastolic 2021-11-06 11:00:00 79 mm[Hg] Common [facility] height 2021-05-08 11:20:00 69.00 [in_i] Com [facility] weight 2021-05-08 11:20:00 207.0 [lb_av] Co mmon [facility] temperature 2021-05-08 11:20:00 98.0 [degF] Com [facility] bmi 2021-05-08 11:20:00 30.57 kg/m2 Comm on [facility] oximetry 2021-05-08 11:20:00 96 % Commo n [facility] respiratory rate 2021-05-08 11:20:00 17 /min Common [facility] blood pressure systolic 2021-05-08 11:20:00 134 mm[Hg] Common [facility] blood pressure diastolic 2021-05-08 11:20:00 69 mm[Hg] [facility] Encounters Start Date/Time End Date/Time Encounter Type Admission Type Attending Clinicians Care Facility Care Department Encounter ID Source 2023-06-06 10:45:00 Outpatient Tom Beard [facility] [id number] [facility] 2023-03-06 09:09:00 Outpatient Beard, Tom [facility] [id number] [facility] 2022-12-04 09:06:00 Outpatient Beard, Tom [facility] [id number] [facility] 2022-08-26 07:28:00 Outpatient Beard, Tom [facility] [id number] [facility] 2022-07-16 16:49:00 Outpatient Beard, Tom [facility] [id number] [facility] 2022-06-19 16:05:01 Outpatient MIKE, Na [facility] [id number] [facility] 2022-06-07 13:19:00 Outpatient CEE Na [facility]LMLC ST[facility] [id number] [facility] 2022-05-06 14:31:00 Outpatient Cee Na [facility] ST[facility] [id number] [facility] 2021-11-06 12:01:00 Outpatient Mike, Na STLMLC ST[facility] [id number] [facility] 2021-07-05 18:33:38 Outpatient MDA MDA [id number] MD Elham marie 2021-06-27 14:21:39 Outpatient Cee Na [facility]ML[facility] [id number] [facility] 2021-06-27 13:02:06 Outpatient Cee Na [facility] [id number] [facility] 2021-06-27 12:27:17 Outpatient Mike, Na [facility] ST[facility] [id number] [facility] 2023-06-23 00:00:00 2023-06-23 00:00:00 (TEL) STLMLC [facility] [id number] [facility] 2023-06-09 00:00:00 2023-06-09 00:00:00 OFFICE VISIT ESTAB PT LEVEL 4 [facility] [id number] [facility] 2023-03-10 00:00:00 2023-03-10 00:00:00 OFFICE VISIT ESTAB PT LEVEL 4 [facility] [id number] [facility] 2023-01-03 00:00:00 2023-01-03 00:00:00 (WEB) [facility]C [facility] [id number] [facility] 2022-12-10 00:00:00 2022-12-10 00:00:00 (WEB) STLMLC ST[facility]C [id number] [facility] 2022-12-06 00:00:00 2022-12-06 00:00:00 OFFICE VISIT ESTAB PT LEVEL 4 [facility] [id number] [facility] 2022-08-28 00:00:00 2022-08-28 00:00:00 OFFICE VISIT ESTAB PT LEVEL 4 [facility] [id number] [facility] 2022-08-28 00:00:00 2022-08-28 00:00:00 WELCOME TO MEDICARE PREV PHY EXAM [facility]C [facility] [id number] [facility] 2022-08-28 00:00:00 2022-08-28 00:00:00 (TEL) [facility]LMLC [facility] [id number] [facility] 2022-08-05 00:00:00 2022-08-05 00:00:00 (TEL) STLMLC [facility] [id number] [facility] 2022-08-05 00:00:00 2022-08-05 00:00:00 (TEL) STLMLC ST[facility]C [id number] [facility] 2022-07-16 00:00:00 2022-07-16 00:00:00 (TEL) STLMLC [facility]C [id number] [facility] 2022-06-07 00:00:00 2022-06-07 00:00:00 OFFICE VISIT EST PT LEVEL 3 [facility] [id number] [facility] 2022-06-05 00:00:00 2022-06-05 00:00:00 (TEL) STLMLC [facility] [id number] [facility] 2022-05-08 00:00:00 2022-05-08 00:00:00 (TEL) STLMLC [facility] [id number] [facility] 2021-11-06 00:00:00 2021-11-06 00:00:00 OFFICE VISIT ESTAB PT LEVEL 4 [facility] [id number] [facility] 2021-05-08 00:00:00 2021-05-08 00:00:00 OFFICE VISIT ESTAB PT LEVEL 4 [facility] [id number] [facility] 2020-10-12 00:00:00 2020-10-12 00:00:00 Outpatient [facility] [id number] [facility] 2020-09-12 00:00:00 2020-09-12 00:00:00 Outpatient [facility] [id number] [facility] 2019-04-05 08:00:00 2019-04-05 08:00:[address] [facility] [place] [facility] [id number] [facility] 2018-12-30 08:20:00 2018-12-30 08:20:00 [facility] [id number] [facility] 2018-06-16 14:00:00 2018-06-16 14:00:00 [facility] [id number] [facility] 2017-12-24 10:00:00 2017-12-24 10:00:00 [facility] [place] [facility] [id number] [facility] Results Test Description Test Time Test Comments Results Result Co mments Source HEMOGLOBIN [id number] 00:00:00* Test Item Value Reference Range Interpretation Comme nts HEMOGLOBIN A1c (test code = 4548-4) 8.1 % See_Comment H [Automated messa ge] The system which generated this result transmitted reference range: 4.2-5.6 %. The reference range was not used to interpret this result as normal/abnormal. TSH REFLEX TO FREE [id number] 00:00:00* Test Item Value Reference Range Interpretation [facility] TSH REFLEX TO FREE T4 (test code = 64496-6) 2.580 UIU/ML See_Comment [Automated messa ge] The system which generated this result transmitted reference range: 0.400-4.100 UIU/ML. The reference range was not used to interpret this result as normal/abnormal. LIPID PANEL WITH REFLEX DIRECT [id number] 00:00:00* Test Item Value Reference Range Interpretation [facility] CALC LDL CHOL (test code = 54190-1) 134 MG/DL See_Comment H [Automated messa ge] The system which generated this result transmitted reference range: <100 MG/DL. The reference range was not used to interpret this result as normal/abnormal. CHOLESTEROL (test code = 2093-3) 208 MG/DL See_Comment H [Automated messa ge] The system which generated this result transmitted reference range: <200 MG/DL. The reference range was not used to interpret this result as normal/abnormal. HDL CHOLESTEROL (test code = 2085-9) 32 MG/DL See_Comment L [Automated messa ge] The system which generated this result transmitted reference range: >39 MG/DL. The reference range was not used to interpret this result as normal/abnormal. RISK RATIO LDL/HDL (test code = 94429-8) 4.19 RATIO See_Comment H [Automated message] The system which generated this result transmitted reference range: <3.55 RATIO. The reference range was not used to interpret this result as normal/abnormal. TRIGLYCERIDES (test code = 2571-8) 295 MG/DL See_Comment H [Automated messa ge] The system which generated this result transmitted reference range: <150 MG/DL. The reference range was not used to interpret this result as normal/abnormal. ALBUMIN/CREATININE RATIO, RANDOM [id number] 00:00:00* Test Item Value Reference Range Interpretation [facility] ALBUMIN, URINE, RANDOM (test code = 39466-8) 0.2 MG/DL NOT ESTAB MG/DL CALC ALBUMIN/CREAT, RND (test code = 24110-0) 2 MG/G See_Comment [Automated messa ge] The system which generated this result transmitted reference range: <30 MG/G. The reference range was not used to interpret this result as normal/abnormal. CREATININE, URINE, CONC. (test code = 2161-8) 95.5 MG/DL NOT ESTAB MG/DL COMPREHENSIVE METABOLIC [id number] 00:00:00* Test Item Value Reference Range Interpretation Comme nts ALBUMIN (test code = 1751-7) 4.8 G/DL See_Comment [Automated messa ge] The system which generated this result transmitted reference range: 3.5-5.2 G/DL. The reference range was not used to interpret this result as normal/abnormal. ALKALINE PHOSPHATASE (test code = 6768-6) 79 U/L See_Comment [Automated message] The system which generated this result transmitted reference range: 40-125 U/L. The reference range was not used to interpret this result as normal/abnormal. BILIRUBIN, TOTAL (test code = 1975-2) 0.4 MG/DL See_Comment [Automated message] The system which generated this result transmitted reference range: <=1.2 MG/DL. The reference range was not used to interpret this result as normal/abnormal. BUN (test code = 3094-0) 14 MG/DL See_Comment [Automated messa ge] The system which generated this result transmitted reference range: 8-23 MG/DL. The reference range was not used to interpret this result as normal/abnormal. CALCIUM (test code = 07733-5) 9.9 MG/DL See_Comment [Automated messa ge] The system which generated this result transmitted reference range: 8.5-10.5 MG/DL. The reference range was not used to interpret this result as normal/abnormal. CALC A/G RATIO (test code = 1759-0) 1.8 RATIO See_Comment [Automated Ginger[place] ge] The system which generated this result transmitted reference range: 1.0-2.6 RATIO. The reference range was not used to interpret this result as normal/abnormal. CALC BUN/CREAT (test code = 3097-3) 16 RATIO See_Comment [Automated messa ge] The system which generated this result transmitted reference range: 6-28 RATIO. The reference range was not used to interpret this result as normal/abnormal. CALC GLOBULIN (test code = 09192-7) 2.6 G/DL See_Comment [Automated messa ge] The system which generated this result transmitted reference range: 1.9-3.7 G/DL. The reference range was not used to interpret this result as normal/abnormal. CARBON DIOXIDE (test code = 1963-8) 29 MEQ/L See_Comment [Automated messa ge] The system which generated this result transmitted reference range: 19-31 MEQ/L. The reference range was not used to interpret this result as normal/abnormal. CHLORIDE (test code = 2075-0) 95 MEQ/L See_Comment [Automated messa ge] The system which generated this result transmitted reference range: 95-107 MEQ/L. The reference range was not used to interpret this result as normal/abnormal. CREATININE (test code = 2160-0) 0.89 MG/DL See_Comment [Automated messa ge] The system which generated this result transmitted reference range: 0.80-1.40 MG/DL. The reference range was not used to interpret this result as normal/abnormal. eGFR (2020 CKD-EPI) (test code = 60995-5) 95 ML/MIN/1.73 See_Comment [Automated messa ge] The system which generated this result transmitted reference range: >60 ML/MIN/1.73. The reference range was not used to interpret this result as normal/abnormal. GLUCOSE (test code = 1558-6) 198 MG/DL See_Comment H [Automated messa ge] The system which generated this result transmitted reference range: 70-99 MG/DL. The reference range was not used to interpret this result as normal/abnormal. POTASSIUM (test code = 2823-3) 4.6 MEQ/L See_Comment [Automated messa ge] The system which generated this result transmitted reference range: 3.5-5.4 MEQ/L. The reference range was not used to interpret this result as normal/abnormal. PROTEIN, TOTAL (test code = 2885-2) 7.4 G/DL See_Comment [Automated messa ge] The system which generated this result transmitted reference range: 6.1-8.3 G/DL. The reference range was not used to interpret this result as normal/abnormal. AST (test code = 1920-8) 22 U/L See_Comment [Automated messa ge] The system which generated this result transmitted reference range: 9-50 U/L. The reference range was not used to interpret this result as normal/abnormal. ALT (test code = 1742-6) 40 U/L See_Comment [Automated messa ge] The system which generated this result transmitted reference range: 5-50 U/L. The reference range was not used to interpret this result as normal/abnormal. SODIUM (test code = 2951-2) 134 MEQ/L See_Comment [Automated messa ge] The system which generated this result transmitted reference range: 133-146 MEQ/L. The reference range was not used to interpret this result as normal/abnormal. CBC W/AUTO [id number] 00:00:00* Test Item Value Reference Range Interpretation Comme nts NUCLEATED RBCS (test code = 25720-0) 0.0 /100 WBC'S See_Comment [Automated messa ge] The system which generated this result transmitted reference range: 0.0 /100 WBC'S. The reference range was not used to interpret this result as normal/abnormal. ABSOLUTE EOSINOPHILS (test code = 93297-2) 0.20 K/UL See_Comment [Automated messa ge] The system which generated this result transmitted reference range: 0.00-0.50 K/UL. The reference range was not used to interpret this result as normal/abnormal. ABSOLUTE LYMPHOCYTES (test code = 17984-2) 1.99 K/UL See_Comment [Automated messa ge] The system which generated this result transmitted reference range: 1.00-4.00 K/UL. The reference range was not used to interpret this result as normal/abnormal. ABSOLUTE MONOCYTES (test code = 69779-6) 0.83 K/UL See_Comment [Automated messa ge] The system which generated this result transmitted reference range: 0.20-1.00 K/UL. The reference range was not used to interpret this result as normal/abnormal. ABSOLUTE NEUTROPHILS (test code = 74640-7) 4.29 K/UL See_Comment [Automated messa ge] The system which generated this result transmitted reference range: 1.50-7.50 K/UL. The reference range was not used to interpret this result as normal/abnormal. BASOPHILS (test code = 86506-3) 0.8 % EOSINOPHILS (test code = 67960-5) 2.7 % HEMATOCRIT (test code = 51977-8) 49.5 % See_Comment [Automated messa ge] The system which generated this result transmitted reference range: 40.0-51.0 %. The reference range was not used to interpret this result as normal/abnormal. HEMOGLOBIN (test code = 718-7) 16.8 G/DL See_Comment [Automated messa ge] The system which generated this result transmitted reference range: 13.5-17.0 G/DL. The reference range was not used to interpret this result as normal/abnormal. LYMPHOCYTES (test code = 88476-3) 26.9 % MCH (test code = 18302-5) 32.8 PG See_Comment [Automated messa ge] The system which generated this result transmitted reference range: 25.0-33.0 PG. The reference range was not used to interpret this result as normal/abnormal. MCHC (test code = 02512-8) 33.9 G/DL See_Comment [Automated messa ge] The system which generated this result transmitted reference range: 31.0-36.0 G/DL. The reference range was not used to interpret this result as normal/abnormal. MCV (test code = 21631-5) 96.7 fL See_Comment [Automated messa ge] The system which generated this result transmitted reference range: 80.0-99.0 fL. The reference range was not used to interpret this result as normal/abnormal. MONOCYTES (test code = 19802-5) 11.2 % NEUTROPHILS (test code = 37171-9) 57.9 % PLATELET COUNT (test code = 45592-2) 214 K/UL See_Comment [Automated messa ge] The system which generated this result transmitted reference range: 130-400 K/UL. The reference range was not used to interpret this result as normal/abnormal. RBC (test code = 39019-0) 5.12 M/UL See_Comment [Automated messa ge] The system which generated this result transmitted reference range: 4.50-6.10 M/UL. The reference range was not used to interpret this result as normal/abnormal. RDW (test code = 40926-6) 12.2 % See_Comment [Automated messa ge] The system which generated this result transmitted reference range: 11.5-15.0 %. The reference range was not used to interpret this result as normal/abnormal. WBC (test code = 02724-7) 7.4 K/UL See_Comment [Automated messa ge] The system which generated this result transmitted reference range: 3.5-11.0 K/UL. The reference range was not used to interpret this result as normal/abnormal. PSA W/REFLEX TO FREE [id number] 00:00:00* Test Item Value Reference Range Interpretation Comme nts PROSTATE SPECIFIC AG (test code = 11512-6) 0.76 NG/ML See_Comment [Automated messa ge] The system which generated this result transmitted reference range: <=4.00 NG/ML. The reference range was not used to interpret this result as normal/abnormal. HEMOGLOBIN [id number] 00:00:00* Test Item Value Reference Range Interpretation Comme nts HEMOGLOBIN A1c (test code = 4548-4) 9.0 % See_Comment H [Automated messa ge] The system which generated this result transmitted reference range: 4.2-5.6 %. The reference range was not used to interpret this result as normal/abnormal. FREE T4 (THYROXINE)2022-12-02 00:00:00* Test Item Value Reference Range Interpretation Comme nts FREE T4 (THYROXINE) (test code = 3024-7) 1.28 NG/DL See_Comment [Automated messa ge] The system which generated this result transmitted reference range: 0.80-1.90 NG/DL. The reference range was not used to interpret this result as normal/abnormal. TSH REFLEX TO FREE [id number] 00:00:00* Test Item Value Reference Range Interpretation Comme nts TSH REFLEX TO FREE T4 (test code = 83066-4) 4.200 UIU/ML See_Comment H [Automated messa ge] The system which generated this result transmitted reference range: 0.400-4.100 UIU/ML. The reference range was not used to interpret this result as normal/abnormal. UA, MICROSCOPIC, REFLEX TO [id number] 00:00:00* Test Item Value Reference Range Interpretation Comme nts APPEARANCE (test code = 5767-9) CLEAR CLEAR BACTERIA (test code = 65102-3) NONE SEEN NONE SEEN BILIRUBIN (test code = 5770-3) NEGATIVE NEGATIVE CASTS, HYALINE (test code = 81930-1) NONE SEEN NONE-TRACE COLOR (test code = 5778-6) YELLOW YELLOW-STRAW EPITHELIAL CELLS (test code = 03797-9) 0-5 /HPF See_Comment [Automated messa ge] The system which generated this result transmitted reference range: 0-5 /HPF. The reference range was not used to interpret this result as normal/abnormal. GLUCOSE (test code = 5792-7) 3+ NEGATIVE A KETONES (test code = 5797-6) NEGATIVE NEGATIVE LEUKOCYTE ESTERASE (test code = 5799-2) NEGATIVE NEGATIVE NITRITE (test code = 5802-4) NEGATIVE NEGATIVE OCCULT BLOOD (test code = 80727-7) NEGATIVE NEGATIVE pH (test code = 5803-2) 7.0 5.0-9.0 PROTEIN (test code = 57516-4) NEGATIVE NEGATIVE RED BLOOD CELLS (test code = 13891-1) 0-2 /HPF See_Comment [Automated messa ge] The system which generated this result transmitted reference range: 0-2 /HPF. The reference range was not used to interpret this result as normal/abnormal. SPECIFIC GRAVITY (test code = 5811-5) 1.027 1.005-1.035 UROBILINOGEN (test code = 56976-6) 0.2 MG/DL See_Comment [Automated messa ge] The system which generated this result transmitted reference range: <=2.0 MG/DL. The reference range was not used to interpret this result as normal/abnormal. WHITE BLOOD CELLS (test code = 27039-9) 0-5 /HPF See_Comment [Automated messa ge] The system which generated this result transmitted reference range: 0-5 /HPF. The reference range was not used to interpret this result as normal/abnormal. LIPID PANEL WITH REFLEX DIRECT [id number] 00:00:00* Test Item Value Reference Range Interpretation Comme nts CALC LDL CHOL (test code = 39346-6) 139 MG/DL See_Comment H [Automated messa ge] The system which generated this result transmitted reference range: <100 MG/DL. The reference range was not used to interpret this result as normal/abnormal. CHOLESTEROL (test code = 2093-3) 219 MG/DL See_Comment H [Automated messa ge] The system which generated this result transmitted reference range: <200 MG/DL. The reference range was not used to interpret this result as normal/abnormal. HDL CHOLESTEROL (test code = 2085-9) 39 MG/DL See_Comment L [Automated messa ge] The system which generated this result transmitted reference range: >39 MG/DL. The reference range was not used to interpret this result as normal/abnormal. RISK RATIO LDL/HDL (test code = 12261-6) 3.56 RATIO See_Comment H [Automated message] The system which generated this result transmitted reference range: <3.55 RATIO. The reference range was not used to interpret this result as normal/abnormal. TRIGLYCERIDES (test code = 2571-8) 266 MG/DL See_Comment H [Automated messa ge] The system which generated this result transmitted reference range: <150 MG/DL. The reference range was not used to interpret this result as normal/abnormal. ALBUMIN/CREATININE RATIO, RANDOM [id number] 00:00:00* Test Item Value Reference Range Interpretation Comme nts ALBUMIN, URINE, RANDOM (test code = 60475-9) <0.2 MG/DL NOT ESTAB MG/DL CALC ALBUMIN/CREAT, RND (test code = 57453-4) <3 MG/G See_Comment [Automated messa ge] The system which generated this result transmitted reference range: <30 MG/G. The reference range was not used to interpret this result as normal/abnormal. CREATININE, URINE, CONC. (test code = 2161-8) 58.1 MG/DL NOT ESTAB MG/DL COMPREHENSIVE METABOLIC [id number] 00:00:00* Test Item Value Reference Range Interpretation Comme nts ALBUMIN (test code = 1751-7) 4.5 G/DL See_Comment [Automated messa ge] The system which generated this result transmitted reference range: 3.5-5.2 G/DL. The reference range was not used to interpret this result as normal/abnormal. ALKALINE PHOSPHATASE (test code = 6768-6) 77 U/L See_Comment [Automated message] The system which generated this result transmitted reference range: 40-125 U/L. The reference range was not used to interpret this result as normal/abnormal. BILIRUBIN, TOTAL (test code = 1975-2) 0.4 MG/DL See_Comment [Automated message] The system which generated this result transmitted reference range: <=1.2 MG/DL. The reference range was not used to interpret this result as normal/abnormal. BUN (test code = 3094-0) 9 MG/DL See_Comment [Automated messa ge] The system which generated this result transmitted reference range: 8-23 MG/DL. The reference range was not used to interpret this result as normal/abnormal. CALCIUM (test code = 04601-4) 9.8 MG/DL See_Comment [Automated messa ge] The system which generated this result transmitted reference range: 8.5-10.5 MG/DL. The reference range was not used to interpret this result as normal/abnormal. CALC A/G RATIO (test code = 1759-0) 1.6 RATIO See_Comment [Automated messa ge] The system which generated this result transmitted reference range: 1.0-2.6 RATIO. The reference range was not used to interpret this result as normal/abnormal. CALC BUN/CREAT (test code = 3097-3) 9 RATIO See_Comment [Automated messa ge] The system which generated this result transmitted reference range: 6-28 RATIO. The reference range was not used to interpret this result as normal/abnormal. CALC GLOBULIN (test code = 88424-1) 2.8 G/DL See_Comment [Automated messa ge] The system which generated this result transmitted reference range: 1.9-3.7 G/DL. The reference range was not used to interpret this result as normal/abnormal. CARBON DIOXIDE (test code = 1963-8) 29 MEQ/L See_Comment [Automated messa ge] The system which generated this result transmitted reference range: 19-31 MEQ/L. The reference range was not used to interpret this result as normal/abnormal. CHLORIDE (test code = 2075-0) 97 MEQ/L See_Comment [Automated messa ge] The system which generated this result transmitted reference range: 95-107 MEQ/L. The reference range was not used to interpret this result as normal/abnormal. CREATININE (test code = 2160-0) 0.98 MG/DL See_Comment [Automated messa ge] The system which generated this result transmitted reference range: 0.80-1.40 MG/DL. The reference range was not used to interpret this result as normal/abnormal. eGFR (2020 CKD-EPI) (test code = 67850-5) 85 ML/MIN/1.73 See_Comment [Automated messa ge] The system which generated this result transmitted reference range: >60 ML/MIN/1.73. The reference range was not used to interpret this result as normal/abnormal. GLUCOSE (test code = 1558-6) 209 MG/DL See_Comment H [Automated messa ge] The system which generated this result transmitted reference range: 70-99 MG/DL. The reference range was not used to interpret this result as normal/abnormal. POTASSIUM (test code = 2823-3) 5.2 MEQ/L See_Comment [Automated messa ge] The system which generated this result transmitted reference range: 3.5-5.4 MEQ/L. The reference range was not used to interpret this result as normal/abnormal. PROTEIN, TOTAL (test code = 2885-2) 7.3 G/DL See_Comment [Automated messa ge] The system which generated this result transmitted reference range: 6.1-8.3 G/DL. The reference range was not used to interpret this result as normal/abnormal. AST (test code = 1920-8) 29 U/L See_Comment [Automated messa ge] The system which generated this result transmitted reference range: 9-50 U/L. The reference range was not used to interpret this result as normal/abnormal. ALT (test code = 1742-6) 56 U/L See_Comment H [Automated messa ge] The system which generated this result transmitted reference range: 5-50 U/L. The reference range was not used to interpret this result as normal/abnormal. SODIUM (test code = 2951-2) 139 MEQ/L See_Comment [Automated messa ge] The system which generated this result transmitted reference range: 133-146 MEQ/L. The reference range was not used to interpret this result as normal/abnormal.
[2023-08-14] MEDS ORDERED: HEPARIN/D5W 25,000 UNIT/500 ML BAG IV SCH (17:00)
[2023-08-14 17:31] LABS: Absolute Lymphocytes (CBC) 0.7 K/uL (0.7-4.9); Absolute Monocytes 0.4 K/uL (0.1-1.3); Absolute Neutrophil 16.8 K/uL (1.8-8.0); Basophils % 0.1 % (0-1.3); Hematocrit 47.6 % (39.6-49.0); Hemoglobin 16.3 g/dL (13.6-17.9); Lymphocytes % 4.2 % (15.3-44.8); MCHC 34.1 g/dL (32.0-36.0); MCV 96.5 fL (80-100); MPV 9.5 fL (7.6-11.3); Monocytes % 2.1 % (3.3-12.3); Neutrophils % 93.6 % (41.7-73.7); Platelets 235 thou/uL (152-406); RBC Red Blood Cell Count 4.93 M/uL (4.33-5.43); Red Cell Distribution Width 12.3 % (12.1-15.2)
[2023-08-14 18:06] LABS: Albumin 3.7 g/dL (3.4-5.0); Anion Gap 14.4 mEq/L (5.0-15.0); Bilirubin Total 0.7 mg/dL (0.2-1.0); Globulin 3.7 g/dL (2.3-3.5); Phosphorus 3.7 mg/dL (2.5-4.9); Potassium 4.4 mEq/L (3.5-5.1); Protein, Total 7.4 g/dL (6.4-8.2); Thyroid Stimulating Hormone 0.972 uIU/mL (0.358-3.740)
[2023-08-14] MEDS ORDERED: D10W 250 ML BAG IV PRN (18:32)
[2023-08-14] MEDS ORDERED: GLUCAGON 1 MG/VIAL IM PRN (18:32)
--- NOTE | 2023-08-14 18:42 | P.HP ---
Certification for Inpatient Patient admitted to: Inpatient With expected LOS: >2 Midnights Patient will require the following post-hospital care: None Practitioner: I am a practitioner with admitting privileges, knowledge of patient current condition, hospital course, and medical plan of care. Services: Services provided to patient in accordance with Admission requirements found in Title 42 Section 412.3 of the Code of Federal Regulations <HoNu Elias - Last Filed: 08/14/23 18:34> Patient History Date of Service: 08/14/23 Primary Care Provider: Dr. Beard Reason for admission: C second to left leg pain, malaise History of Present Illness: Mr. Sanchez is a 67-year-old patient of Dr. Beard, who has a past medical history of fat-bdnpqkx-pqwvoqjib diabetes, hypertension, hyperlipidemia, and has been experiencing some malaise, left leg shooting pains, intermittent shortness of breath, just a vague feeling of heaviness. He was seen per Dr. Ramos for an elective left cardiac cath today. He was noted to have disease in the diagonal and also 99% occlusion of the LAD. Dr. Ramos was able to correct the diagonal; however, the plaque in the LAD either migrated or the vessel spasmed. The plan is to return to the [facility] tomorrow for a repeat left heart cath. Mr. Sanchez will be monitored in the intensive care unit on Brilinta, atorvastatin, and nitro paste per cardiology. We will follow for medical management overnight while patient awaits [facility]. Home medications list reviewed: Yes - Past Medical/Surgical History Has patient received pneumonia vaccine in the past: No Diabetic: Yes -: DMII -: HTN -: HLD -: Mole Removal- melanoma Psychosocial/ Personal History: Lives at home with his - Family History DAD -: Heart disease, Diabetes MOM -: Heart disease, Diabetes - Social History Smoking Status: Never smoker Alcohol use: Yes CD- Drugs: No Caffeine use: Yes Place of Residence: Home <Eusebia Teaguelaura Elias - Last Filed: 08/14/23 18:34> Date of Service: 08/14/23 <Everett Damico - Last Filed: 08/15/23 03:08> Allergies iodine Allergy (Verified 08/11/23 09:27) Hives/Rash Home Medications: Ascorbic Acid [Vitamin C] 500 mg PO DAILY 08/11/23 Docosahexanoic AC/Epa [Fish Oil 1,000 MG CAP] 1,000 mg PO BID 08/11/23 Empagliflozin [Jardiance] 25 mg PO DAILY 08/11/23 Glimepiride 4 mg PO BID 08/11/23 Losartan/Hydrochlorothiazide [Losartan-Hctz 100-25 mg Tab] 1 each PO DAILY 08/11/23 Metformin HCl 1,000 mg PO BID 08/11/23 Metoprolol Succinate [Toprol Xl] 100 mg PO DAILY 08/11/23 Semaglutide [Ozempic] 2 mg SQ EVERY 7TH DAY 08/11/23 Vitamin D3/Vitamin K2 (Mk4) [K2 Plus D3 Tablet] 1 each PO DAILY 08/11/23 Review of Systems 10-point ROS is otherwise unremarkable General: Malaise Respiratory: As per HPI Cardiovascular: As per HPI Gastrointestinal: Unremarkable Genitourinary: Unremarkable Musculoskeletal: Leg Pain, As per HPI Integumentary: Other (recent mole removal with plan for Mohs on low back) Neurological: As per HPI <Nu Teague - Last Filed: 08/14/23 18:34> Physical Examination - Vital Signs Temperature: 96.9 F Blood Pressure: 125/81 Pulse: 105 Respirations: 12 Pulse Ox (%): 98 - Physical Exam General: Alert, In no apparent distress, Oriented x3 HEENT: Atraumatic, Normocephalic Neck: Supple, JVD not distended Respiratory: Normal air movement Cardiovascular: No edema, Normal pulses, Regular rate/rhythm, Other (tachy at 103) Capillary refill: <2 Seconds Gastrointestinal: Normal bowel sounds, Soft and benign Musculoskeletal: No clubbing, No swelling Integumentary: Other (biopsy site to low back) Neurological: Normal speech, Normal tone Lymphatics: No axilla or inguinal lymphadenopathy External genitalia: Deferred Rectal: Deferred - Studies Laboratory Data (last 24 hrs) 08/14/23 08/14/23 16:43 16:43 WBC 17.90 H Hgb 16.3 Hct 47.6 Plt Count 235 Sodium 134 L Potassium 4.4 BUN 21 H Creatinine 1.32 H Glucose 221 H Phosphorus 3.7 Magnesium 2.0 Total Bilirubin 0.7 AST 10 L ALT 32 Alkaline Phosphatase 62 Triglycerides 43 Cholesterol 226 H HDL Cholesterol 43 Cholesterol/HDL Ratio 5.26 <Nu Teaguelen - Last Filed: 08/14/23 18:34> - Studies Laboratory Data (last 24 hrs) 08/15/23 08/14/23 08/14/23 01:23 18:24 16:43 WBC Hgb Hct Plt Count APTT 42.1 H 117.1 H Sodium 134 L Potassium 4.4 BUN 21 H Creatinine 1.32 H Glucose 221 H Phosphorus 3.7 Magnesium 2.0 Total Bilirubin 0.7 AST 10 L ALT 32 Alkaline Phosphatase 62 Triglycerides 43 Cholesterol 226 H HDL Cholesterol 43 Cholesterol/HDL Ratio 5.26 08/14/23 16:43 WBC 17.90 H Hgb 16.3 Hct 47.6 Plt Count 235 APTT Sodium Potassium BUN Creatinine Glucose Phosphorus Magnesium Total Bilirubin AST ALT Alkaline Phosphatase Triglycerides Cholesterol HDL Cholesterol Cholesterol/HDL Ratio <Everett Damico - Last Filed: 08/15/23 03:08> Assessment and Plan - Plan Assessment And Plan Coronary artery disease with unstable angina: Essential hypertension: Hyperlipidemia: NIDDM: Plan: 1. Serial troponins if elevated 2. Appreciate direction from cardiology 3. Antiplatelet therapy, anticoagulation, beta-janet, statin, and O2 as needed, per Dr. Ramos 4. IV morphine for pain control 5. Nitro paste q 6-8h 6. AHA diet tonight, NPO post MN 7. LCH in am Brilinta and heparin Code Status: Full - Advance Directives Does patient have a Living Will: No Does patient have a Durable POA for Healthcare: No <Nu Teaguelen - Last Filed: 08/14/23 18:34> Date of Service: 08/14/23 Patient seen and examined. Rooms findings as mentioned above. Patient will have a heart catheterization in the morning to re-evaluate LAD lesion. Patient may need further intervention pending cardiac catheterization. Continue with medical management at this time. Appreciate Cardiology assistance. <Everett Damico - Last Filed: 08/15/23 03:08>
[2023-08-14] MEDS: DOCOSAHEXANOIC AC/EPA 1000 MG PO SCH (20:07)
[2023-08-14] MEDS: TICAGRELOR 90 MG TABLET PO SCH (20:07)
[2023-08-14] MEDS: ATORVASTATIN 40 MG TAB PO SCH (20:07)
--- NOTE | 2023-08-14 20:28 | OP ---
Date of Procedure: 08/14/2023 Surgeon: SIXTO PICKARD Procedures Performed: 1.Selective coronary angiogram. 2.Left heart catheterization. 3.PCI of severe ostial diagonal 1 branch, used 3.0 x 60 mm Synergy drug-eluting stent. 4.Balloon angioplasty of severe mid LAD stenosis, used 2.5 x 12 mm Compliant balloon. Indication: Unstable angina with abnormal stress test. Access: Right radial artery 6-Algerian, closed with TR band. Complications: None. Anesthesia: Total sedation time was 85 minutes, used fentanyl and Versed. Description Of Procedure: After risks, benefits, and alternatives were explained, the patient agreed to procedure and signed informed consent. The patient was brought into the cardiac catheterization laboratory, prepped and draped in usual sterile fashion. Then, I accessed radial artery using pediat zachery micropuncture kit, placed a 6-Algerian Slender sheath, took a 5-Algerian tiger 4 catheter over J-wire into the aortic root, engaged left main and then right coronary artery, took standard views, and cat heter was pushed over the wire into the LV, measured the LVEDP. Pullback recorded small gradient sug gestive of mild . Then, I took a 6-Algerian EBU3.5 guide into aortic root, engaged left main, took 1 run-through wire, placed it in the LAD and the run-through wire placed within the diagonal branch, p erformed balloon angioplasty of the LAD first using 2.5 balloon and then balloon angioplasty of the d iagonal was done and then I stented the diagonal into the LAD using 3.0 x 60 mm stent and at that kalyan e, the flow was lost in the LAD, even though the area where the cutoff was far away from the stent pr obably is a plaque shift. I rewired the LAD through the stent and took a 1.0 balloon and opened the stent struts and then took 2.0 balloon, opened stent struts further and then gave intracoronary Nipri de and nitroglycerin as well as adenosine, established MAUREEN-1 flow in the LAD, so at this time, we us ed large amount of contrast. This chest pain resolved, so decided to stop the procedure and keep him on anticoagulation overnight and bring him back tomorrow for possible stenting of the LAD if we are able to do that. Then I removed the wire and the guide and he sheath, placed TR band with good hemos tasis. Findings: 1.Left main; large with luminal regularity. 2.LAD; proximal segment is with luminal irregularities and diagonal 1 takeoff has 90% stenosis ostia lly, status post successful PCI as above. Then, the LAD after the septal branch has 99% stenosis, st atus post balloon angioplasty, could not deliver a stent through and stopped trying at this moment du e to the fact that there was no reflow in the artery, established acceptable blood flow at the end wi th the vasodilators and I decided to stage the procedure and re-intervene tomorrow on the LAD. Rest of the LAD is very small, about 1.5 mm vessel, significantly underfilled apparently. 3.Left circumflex is moderate size and normal. 4.RCA; large and dominant, mid 40%, and then the PDA is very large, has mid 80% stenosis. 5.LVEDP is normal at 10 mmHg. Conclusions: 1.Severe diagonal 1 branch and mid LAD stenosis, status post successful PCI of the diagonal 1 branch which is very large, it is larger than the LAD and balloon angioplasty of the mid LAD, but with MAUREEN 1 flow at the end of the procedure. 2.Severe PDA stenosis. Plan: Admit on IV heparin. Continue aspirin and Brilinta, and plan to revisit the coronaries tomorr ow in the afternoon. Use nitroglycerin for chest pain. SR/MODL Voice ID: [id number] Report ID: [id number]
[2023-08-14 20:30] LABS: White Blood Cell Scan OK (OK)
[2023-08-14 20:31] LABS: Blood Morphology Comment NOT SEEN (NOT SEEN); Platelet Estimate ADEQ
[2023-08-14] MEDS: HEPARIN/D5W 25,000 UNIT/500 ML BAG IV SCH (21:30)
[2023-08-14] MEDS ORDERED: NITROGLYCERIN 1 GM PKT TD ONE (22:15)
[2023-08-14] MEDS: NITROGLYCERIN 1 GM PKT TD PRN (22:16)
[2023-08-15] MEDS ORDERED: HEPARIN/D5W 25,000 UNIT/500 ML BAG IV SCH (02:00)
[2023-08-15] MEDS: HEPARIN 5000 UNIT/ML 1 ML VIAL IV ONE (02:10)
[2023-08-15] MEDS ORDERED: TICAGRELOR 90 MG TABLET PO ONE (05:02)
[2023-08-15] MEDS ORDERED: ASPIRIN EC 81 MG TAB PO ONE (05:02)
[2023-08-15] MEDS: LOSARTAN/HCTZ 50-12.5 PO SCH (05:30)
[2023-08-15] MEDS: ASPIRIN EC 81 MG TAB PO SCH (05:31)
[2023-08-15] MEDS: METOPROLOL XL 100 MG TAB PO SCH (05:32)
[2023-08-15] MEDS: MORPHINE 4 MG/ML SYR IV PRN (06:10)
[2023-08-15 07:01] LABS: Absolute Monocytes 1.6 K/uL (0.1-1.3); Absolute Neutrophil 16.3 K/uL (1.8-8.0); Basophils % 0.1 % (0-1.3); Hemoglobin 15.6 g/dL (13.6-17.9); Lymphocytes % 5.4 % (15.3-44.8); MCH 32.6 pg (27.0-35.0); MCHC 33.9 g/dL (32.0-36.0); MCV 96.2 fL (80-100); MPV 9.6 fL (7.6-11.3); Monocytes % 8.6 % (3.3-12.3); Neutrophils % 85.9 % (41.7-73.7); Platelets 227 thou/uL (152-406); RBC Red Blood Cell Count 4.78 M/uL (4.33-5.43); Red Cell Distribution Width 12.4 % (12.1-15.2)
[2023-08-15 07:47] LABS: Anion Gap 12.9 mEq/L (5.0-15.0); Magnesium 2.4 mg/dL (1.6-2.4); Potassium 3.9 mEq/L (3.5-5.1)
[2023-08-15 08:46] LABS: Blood Morphology Comment NOT SEEN (NOT SEEN); Platelet Estimate ADEQ; White Blood Cell Scan OK (OK)
[2023-08-15] MEDS ORDERED: HOME MED 1 EA UNK (Losartan/Hydrochlorothiazide [Losartan-Hctz 100-25 Mg Tab] 1 EACH Table PO SCH (09:00)
--- NOTE | 2023-08-15 09:48 | P.PN ---
Subjective Date of Service: 08/15/23 Primary Care Provider: Dr. Beard Chief Complaint: LHC second to left leg pain, malaise Subjective: No new changes, Other (worried re: when LHC might take place) <HoNu Elias - Last Filed: 08/15/23 19:51> Date of Service: 08/15/23 <[place]owaqar Esperanza - Last Filed: 08/16/23 16:42> Review of Systems 10-point ROS is otherwise unremarkable General: As per HPI Respiratory: As per HPI Cardiovascular: As per HPI <Nu Teague - Last Filed: 08/15/23 19:51> Physical Examination - Vital Signs Temperature: 97.2 F Blood Pressure: 138/77 Pulse: 68 Respirations: 17 Pulse Ox (%): 99 - Physical Exam General: Alert, In no apparent distress, Oriented x3 HEENT: Atraumatic, Normocephalic Neck: Supple, 2+ carotid pulse no bruit Respiratory: Clear to auscultation bilaterally, Normal air movement Cardiovascular: Normal pulses, Regular rate/rhythm (rate in the 70s) Capillary refill: <2 Seconds Gastrointestinal: Soft and benign Musculoskeletal: No clubbing, No swelling Integumentary: No rashes Neurological: Normal speech, Normal tone Lymphatics: No axilla or inguinal lymphadenopathy External genitalia: Deferred Rectal: Deferred - Studies Laboratory Data (last 24 hrs) 08/15/23 08/15/23 08/15/23 06:20 06:20 06:20 WBC 19.00 H Hgb 15.6 Hct 46.0 Plt Count 227 APTT 68.3 H Sodium 136 Potassium 3.9 BUN 27 H Creatinine 1.31 H Glucose 277 H Phosphorus Magnesium 2.4 Total Bilirubin AST ALT Alkaline Phosphatase Triglycerides Cholesterol HDL Cholesterol Cholesterol/HDL Ratio 08/15/23 08/14/23 08/14/23 01:23 18:24 16:43 WBC Hgb Hct Plt Count APTT 42.1 H 117.1 H Sodium 134 L Potassium 4.4 BUN 21 H Creatinine 1.32 H Glucose 221 H Phosphorus 3.7 Magnesium 2.0 Total Bilirubin 0.7 AST 10 L ALT 32 Alkaline Phosphatase 62 Triglycerides 43 Cholesterol 226 H HDL Cholesterol 43 Cholesterol/HDL Ratio 5.26 08/14/23 16:43 WBC 17.90 H Hgb 16.3 Hct 47.6 Plt Count 235 APTT Sodium Potassium BUN Creatinine Glucose Phosphorus Magnesium Total Bilirubin AST ALT Alkaline Phosphatase Triglycerides Cholesterol HDL Cholesterol Cholesterol/HDL Ratio <Nu Teague - Last Filed: 08/15/23 19:51> Assessment And Plan - Plan Assessment And Plan Coronary artery disease with unstable angina: Essential hypertension: Hyperlipidemia: NIDDM: Plan: 1. Serial troponins if elevated (troponin expected to be high post LHC yesterday, no trending necessary per Dr. Ramos) 2. Appreciate direction from cardiology 3. Antiplatelet therapy, anticoagulation, beta-janet, statin, and O2 as needed, per Dr. Ramos 4. IV morphine for pain control 5. Nitro paste q 6-8h 6. AHA diet 7. LCH delayed until Friday08/18/23 for further anticoagulation time Brilinta and heparin per cardiology 8. FSBS ac & hs, SSI coverage Code Status: Full <Nu Teague - Last Filed: 08/15/23 19:51> Date of Service: 08/15/23 Agree with findings as mentioned above. Patient seen and examined. Patient will get repeat cardiac catheterization Friday. <Everett Damico - Last Filed: 08/16/23 16:42>
[2023-08-15] MEDS ORDERED: NITROGLYCERIN 1 GM PKT TD ONE (12:15)
[2023-08-15] MEDS: ENOXAPARIN 100 MG/ML SYR SQ SCH (16:59)
--- NOTE | 2023-08-15 17:22 | EKG ---
Test Date: 2023-08-14 Test Time: 17:45:09 Mobile Equipment Servicer: MARIS MEASUREMENT RESULTS: Intervals: Rate: 103 SC: 160 QRSD: 86 QT: 328 QTc: 429 [place]: P: SC: 160 QRS: 141 T: 17 INTERPRETIVE STATEMENTS: Sinus tachycardia with frequent premature ventricular complexes Otherwise normal ECG Compared to ECG 08/11/2023 09:38:51 Ventricular premature complex(es) now present Sinus rhythm no longer present T-wave abnormality no longer present Electronically Signed On 08-15-23 17:20:11 CDT by Lokesh Ramos
--- NOTE | 2023-08-15 17:42 | EKG ---
Test Date: 2023-08-11 Test Time: 09:38:51 [employer]: VALDEZ MEASUREMENT RESULTS: Intervals: Rate: 85 ME: 166 QRSD: 100 QT: 352 QTc: 418 [place]: P: 74 ME: 166 QRS: 83 T: 82 INTERPRETIVE STATEMENTS: Normal sinus rhythm Nonspecific T wave abnormality Abnormal ECG Compared to ECG 09/19/2022 09:58:05 T-wave abnormality now present Electronically Signed On 08-15-23 17:28:41 CDT by Lokesh Ramos
--- NOTE | 2023-08-15 20:51 | CON ---
Date of Consultation: 08/15/2023 Reason For Consultation: Severe coronary artery disease. History Of Present Illness: 67-year-old male with history of diabetes, hypertension, and dyslipidemi a, coronary artery disease. Had a heart catheterization yesterday. LAD was very small with 99% sten osis. After angioplasty and the PCI of the large diagonal that comes off before the stenosis of the LAD, and no reflow in the LAD completely. After multiple maneuvers, established a MAUREEN-1 flow and hi s chest pain resolved. Likely there was a small thrombus in that LAD that was causing the limitation of blood flow. He was admitted yesterday and on IV heparin. He does not have any chest pain, feels well, this morning. Past Medical History: Diabetes, hypertension, dyslipidemia, coronary artery disease. Medications: Refer to reconciliation sheet for detailed list. Allergies: IODINE. Family History: No premature coronary artery disease or cancer. Social History: Does not smoke or drink. Does not use any drugs. Review of Systems: All systems were reviewed, they were negative except mentioned in HPI. Physical Examination: Vital Signs: Reviewed. Head and Neck: Pupils are equal, reactive to light. Intact eye movements. No JVD. No cervical lym phadenopathy. Neck is supple. Thyroid is not enlarged. Lungs: Clear to auscultation bilaterally. No rhonchi, wheezing, or crackles. No accessory muscle u se. Heart: Regular rate and rhythm. No extra sounds. Abdomen: Soft, nontender. Bowel sounds positive. No organomegaly. No masses or hernia. No rigidi ty or rebound. Extremities: No edema, clubbing, or cyanosis. Intact pulses. Skin: No rash or nodule. Neurologic: Alert, awake, oriented x3. No acute focal deficits appreciated. Lymph Nodes: No cervical or axillary lymphadenopathy. Investigations: Troponin 29,000. BUN 27, creatinine 1.31 and hemoglobin is 15.6. Assessment And Recommendation: 1.Rrc-AI-jhgtlkcof myocardial infarction. He had a thrombus in the LAD, that is very small vessel a bout 1.5 mm, status post balloon angioplasty. He does not have significant chest pain. I will slava nue him on anticoagulation with heparin, which can be switched to Lovenox 1 mg/kg subcu q.12 hours an d plan for a coronary angiogram on Friday. Continue aspirin and Brilinta, status post PCI of the nicky gonal 1, which is much larger than the LAD itself. 2.Dyslipidemia. Recommend a Lipitor 40 mg q.h.s. 3.Chronic kidney disease. Monitor creatinine very carefully in the next 48 hours as he received abo ut 200 mL of contrast during his first intervention. 4.Hypertension. Blood pressure is controlled. I will monitor the patient with you. /SIMONE Voice ID: [id number] Report ID: [id number]
[2023-08-15] MEDS ORDERED: ENOXAPARIN 100 MG/ML SYR SQ SCH (21:00)
[2023-08-15] MEDS: INSULIN REGULAR (HUMAN) 100 UNIT/ML SQ SCH ×2 (21:00)
--- NOTE | 2023-08-16 08:22 | P.PN ---
Subjective Date of Service: 08/16/23 Primary Care Provider: Dr. Beard Chief Complaint: feeling better today, moved from ICU to 220 and feels less tense Subjective: No C/O voiced, Tolerating diet <TeagueNu - Last Filed: 08/16/23 08:19> Date of Service: 08/16/23 <Everett Damico - Last Filed: 08/16/23 16:42> Review of Systems 10-point ROS is otherwise unremarkable General: As per HPI Cardiovascular: As per HPI <TeagueNu Elias - Last Filed: 08/16/23 08:19> Physical Examination - Vital Signs Temperature: 97.9 F Blood Pressure: 125/71 Pulse: 81 Respirations: 14 Pulse Ox (%): 96 - Physical Exam General: Alert, In no apparent distress, Oriented x3 HEENT: Atraumatic, Normocephalic Neck: Supple, 2+ carotid pulse no bruit Respiratory: Normal air movement Cardiovascular: No edema, Normal pulses, Regular rate/rhythm Capillary refill: <2 Seconds Gastrointestinal: Soft and benign Musculoskeletal: No clubbing, No swelling Integumentary: No rashes Neurological: Normal speech, Normal tone Lymphatics: No axilla or inguinal lymphadenopathy External genitalia: Deferred Rectal: Deferred - Studies Laboratory Data (last 24 hrs) 08/15/23 08/15/23 11:07 06:20 WBC 19.00 H Hgb 15.6 Hct 46.0 Plt Count 227 APTT 60.1 H <TeagueNu Curt - Last Filed: 08/16/23 08:19> Assessment And Plan - Plan Assessment And Plan Coronary artery disease with unstable angina: Essential hypertension: Hyperlipidemia: NIDDM: Plan: 1. Serial troponins if elevated (troponin expected to be high post LHC yesterday, no trending necessary per Dr. Ramos) 2. Appreciate direction from cardiology, awaiting second staged PCI Friday (08/18/23) 3. Antiplatelet therapy, anticoagulation, beta-janet, statin, and O2 as needed, per Dr. Ramos 4. IV morphine for pain control 5. Nitro paste q 6-8h 6. AHA diet 7. LCH delayed until Friday08/18/23 for further anticoagulation time Brilinta and heparin per cardiology 8. FSBS ac & hs, SSI coverage Code Status: Full <Nu Teague Curt - Last Filed: 08/16/23 08:19> Date of Service: 08/16/23 Agree with findings as mentioned above. Patient seen and examined. Patient denies chest pain. Patient is doing much better. Patient will get repeat cardiac catheterization Friday. <Everett Damico - Last Filed: 08/16/23 16:42>
[2023-08-16] MEDS: INSULIN GLARGINE 100 UNIT/ML SQ ONE (13:20)
[2023-08-17 07:14] LABS: PT Prothrombin Time 12.8 SECONDS (9.5-12.5); PTT, Activated Partial Thromb 32.7 SECONDS (24.3-36.9); Protime INR 1.17
[2023-08-17 07:16] LABS: Absolute Lymphocytes (CBC) 1.6 K/uL (0.7-4.9); Absolute Monocytes 1.6 K/uL (0.1-1.3); Absolute Neutrophil 8.9 K/uL (1.8-8.0); Basophils % 0.2 % (0-1.3); Eosinophils % 0.3 % (0-4.4); Hematocrit 47.7 % (39.6-49.0); Hemoglobin 16.6 g/dL (13.6-17.9); Lymphocytes % 13.4 % (15.3-44.8); MCHC 34.8 g/dL (32.0-36.0); MCV 95.1 fL (80-100); MPV 9.3 fL (7.6-11.3); Monocytes % 13.1 % (3.3-12.3); Nucleated Red Blood Cells % 0.1 % (0-0); Platelets 203 thou/uL (152-406); RBC Red Blood Cell Count 5.02 M/uL (4.33-5.43); Red Cell Distribution Width 12.2 % (12.1-15.2)
[2023-08-17 07:31] LABS: Albumin 3.4 g/dL (3.4-5.0); Albumin/Globulin Ratio 0.9 (1.1-1.8); Anion Gap 10.8 mEq/L (5.0-15.0); Bilirubin Total 1.6 mg/dL (0.2-1.0); Globulin 3.9 g/dL (2.3-3.5); Potassium 3.8 mEq/L (3.5-5.1); Protein, Total 7.3 g/dL (6.4-8.2)
[2023-08-17] MEDS ORDERED: GLUCAGON 1 MG/VIAL IM PRN (12:02)
[2023-08-17] MEDS ORDERED: D10W 250 ML BAG IV PRN (12:02)
[2023-08-17] MEDS: INSULIN GLARGINE 100 UNIT/ML SQ ONE (12:04)
[2023-08-17] MEDS: INSULIN 70/30 100 UNITS/ML SQ ONE (12:05)
--- NOTE | 2023-08-17 13:08 | P.PN ---
Subjective Date of Service: 08/17/23 Primary Care Provider: Dr. Beard Chief Complaint: denies pain, symptoms, anxious for tomorrow for repeat LHC with PCI Subjective: No new changes Review of Systems 10-point ROS is otherwise unremarkable Cardiovascular: As per HPI Physical Examination - Vital Signs Temperature: 97.2 F Blood Pressure: 111/70 Pulse: 81 Respirations: 16 Pulse Ox (%): 96 - Physical Exam General: Alert, In no apparent distress, Oriented x3 HEENT: Atraumatic, Normocephalic Neck: Supple, 2+ carotid pulse no bruit Respiratory: Normal air movement Cardiovascular: No edema, Normal pulses, Regular rate/rhythm, Other (distant) Capillary refill: <2 Seconds Gastrointestinal: Soft and benign Musculoskeletal: No clubbing, No swelling Integumentary: No rashes Neurological: Normal speech, Normal tone Lymphatics: No axilla or inguinal lymphadenopathy External genitalia: Deferred Rectal: Deferred - Studies Laboratory Data (last 24 hrs) 08/17/23 08/17/23 08/17/23 06:24 06:24 06:24 WBC 12.20 H Hgb 16.6 Hct 47.7 Plt Count 203 PT 12.8 H INR 1.17 APTT 32.7 Sodium 133 L Potassium 3.8 BUN 18 Creatinine 1.01 Glucose 216 H Total Bilirubin 1.6 H AST 43 H ALT 31 Alkaline Phosphatase 60 Assessment And Plan - Plan Assessment And Plan Coronary artery disease with unstable angina: Essential hypertension: Hyperlipidemia: NIDDM: Plan: 1. Serial troponins if elevated (troponin expected to be high post LHC yesterday, no trending necessary per Dr. Ramos) 2. Appreciate direction from cardiology, awaiting second staged PCI Friday (08/18/23) 3. Antiplatelet therapy, anticoagulation, beta-janet, statin, and O2 as needed, per Dr. Ramos 4. IV morphine for pain control 5. Nitro paste q 6-8h 6. AHA diet, NPO post MN for procedure tomorrow 7. LCH delayed until Friday08/18/23 for further anticoagulation time Brilinta and heparin per cardiology 8. FSBS ac & hs, SSI coverage Code Status: Full Discharge Plan: Home Plan to discharge in: 48 Hours
--- NOTE | 2023-08-17 16:19 | PN ---
Date of Progress Note: 08/17/2023 Subjective: Seen by bedside, doing clinically well. No chest pain. Review of Systems: No chest pain, shortness of breath, orthopnea, or cough. No nausea, vomiting, or diarrhea. All othe r systems were reviewed, they were negative. Objective: Vital Signs: Reviewed. Head and Neck: Pupils are equal, reactive to light. Intact eye movements. No JVD. No cervical lym phadenopathy. Neck is supple. Thyroid is not enlarged. Lungs: Clear to auscultation bilaterally. No rhonchi, wheezing, or crackles. No accessory muscle u se. Heart: Regular rate and rhythm. No extra sounds. Abdomen: Soft, nontender. Bowel sounds positive. No organomegaly. No masses or hernia. No rigidi ty or rebound. Extremities: No edema, clubbing, or cyanosis. Intact pulses. Skin: No rash or nodule. Neurologic: Alert, awake, oriented x3. No acute focal deficit appreciated. Investigations: BUN 18, creatinine 1.01, and hemoglobin 16.6. Assessment And Recommendations: 1.Erz-TW-bvewfcazx myocardial infarction, status post PCI of the diagonal 1. LAD is very small and had a small thrombus, on anticoagulation Brilinta and aspirin. Continue that after tonight's dose of Lovenox, to put it on hold and then plan for coronary angiogram tomorrow afternoon, try to salvage t hat LAD and also we may tend to do PCI of the PDA as well. Continue Brilinta and aspirin for now. 2.Dyslipidemia. Continue Lipitor 40 mg q.h.s. 3.Diabetes. Check sugars 3 times a day and cover with regular insulin for tight glycemic control. SR/MODL Voice ID: [id number] Report ID: [id number]
[2023-08-17 17:08] VITALS: BMI 26.6
[2023-08-18 04:07] LABS: PT Prothrombin Time 11.8 SECONDS (9.5-12.5); PTT, Activated Partial Thromb 30.8 SECONDS (24.3-36.9); Protime INR 1.07
[2023-08-18 04:11] LABS: Absolute Eosinophils 0.2 K/uL (0-0.5); Absolute Monocytes 1.7 K/uL (0.1-1.3); Absolute Neutrophil 7.1 K/uL (1.8-8.0); Basophils % 0.3 % (0-1.3); Eosinophils % 1.4 % (0-4.4); Hematocrit 46.9 % (39.6-49.0); Hemoglobin 16.3 g/dL (13.6-17.9); Lymphocytes % 17.9 % (15.3-44.8); MCH 33.1 pg (27.0-35.0); MCHC 34.8 g/dL (32.0-36.0); MCV 95.3 fL (80-100); MPV 9.6 fL (7.6-11.3); Monocytes % 15.4 % (3.3-12.3); Nucleated Red Blood Cells % 0.1 % (0-0); Platelets 204 thou/uL (152-406); RBC Red Blood Cell Count 4.92 M/uL (4.33-5.43); Red Cell Distribution Width 12.2 % (12.1-15.2)
[2023-08-18 04:19] LABS: Albumin/Globulin Ratio 0.8 (1.1-1.8); Anion Gap 9.8 mEq/L (5.0-15.0); Bilirubin Total 0.9 mg/dL (0.2-1.0); Globulin 3.9 g/dL (2.3-3.5); Potassium 3.8 mEq/L (3.5-5.1); Protein, Total 6.9 g/dL (6.4-8.2)
--- NOTE | 2023-08-18 12:04 | P.PN ---
Subjective Date of Service: 08/18/23 Primary Care Provider: Dr. Beard Chief Complaint: denies pain, symptoms, anxious for tomorrow for repeat LHC with PCI P t is resting comfortably in bed. He is sitting on a chair and waiting [place] [address] <- 197. Pt denies any chest pain. No other complaints. Review of Systems General: Unremarkable Eyes: Unremarkable ENT: Unremarkable Respiratory: Unremarkable Cardiovascular: Unremarkable Gastrointestinal: Unremarkable Genitourinary: Unremarkable Musculoskeletal: Unremarkable Integumentary: Unremarkable Neurological: Unremarkable Lymphatics: Unremarkable Physical Examination - Vital Signs Temperature: 97.0 F Blood Pressure: 117/56 Pulse: 66 Respirations: 16 Pulse Ox (%): 95 - Physical Exam General: Alert, In no apparent distress, Oriented x3 HEENT: Atraumatic, Normocephalic, PERRLA Neck: Supple, 2+ carotid pulse no bruit, JVD not distended Respiratory: Clear to auscultation bilaterally, Normal air movement Cardiovascular: No edema, Normal pulses, Regular rate/rhythm, Normal S1 S2 Capillary refill: <2 Seconds Gastrointestinal: Normal bowel sounds, Soft and benign, Non-distended Musculoskeletal: No clubbing, No swelling Integumentary: No rashes, No breakdown Neurological: Normal gait, Normal speech, Normal strength at 5/5 x4 extr Lymphatics: No axilla or inguinal lymphadenopathy - Studies Laboratory Data (last 24 hrs) 08/18/23 08/18/23 08/18/23 02:57 02:57 02:57 WBC 10.90 Hgb 16.3 Hct 46.9 Plt Count 204 PT 11.8 INR 1.07 APTT 30.8 Sodium 137 D Potassium 3.8 BUN 19 H Creatinine 1.08 Glucose 142 H Total Bilirubin 0.9 AST 25 ALT 31 Alkaline Phosphatase 60 Assessment And Plan - Plan Coronary artery disease [place] unstable [place]: [place] [address] <- 197. His troponin spiked after initial LHC. Will trend troponin. Pt denies any chest pain. Will do another cardiac cath today. Pt is NPO. Continue heparin drip, brilinta, beta-janet, statin, and O2 as needed, per Dr. Ramos Essential hypertension: Continue home med Hyperlipidemia: Statin DM II: Continue accuheck, SSI and ADA diet. Code Status: Full Discharge Plan: Home
[2023-08-18] MEDS: NA CHLORIDE 0.9% 500 ML ONE (12:38)
[2023-08-18] MEDS ORDERED: VERAPAMIL HCL 10 MG/4 ML VIAL IV ONE (14:03)
[2023-08-18] MEDS ORDERED: HEPA 1000U/500MLS 2,000 UNIT/1,000 ML BAG IV ONE (14:03)
[2023-08-18] MEDS ORDERED: LIDOCAINE 1% 20 ML MDV ONE (14:03)
[2023-08-18] MEDS ORDERED: HEPARIN 5000 UNIT/ML 1 ML VIAL ONE (14:04)
[2023-08-18] MEDS ORDERED: MIDAZOLAM HCL 2 MG/2 ML INJ ONE (14:04)
[2023-08-18] MEDS ORDERED: TICAGRELOR 90 MG TABLET PO ONE (14:04)
[2023-08-18] MEDS ORDERED: FENTANYL CITR 100 MCG/2 ML ONE (14:04)
[2023-08-18] MEDS ORDERED: HEPARIN 10,000 UNIT/10 ML VIAL IV ONE ×2 (14:04→15:08)
[2023-08-18] MEDS ORDERED: ATROPINE SULF 1 MG/10 ML SYR IV ONE (14:04)
[2023-08-18] MEDS ORDERED: CLOPIDOGREL 75 MG TABLET ONE (14:05)
[2023-08-18] MEDS ORDERED: ASPIRIN 325 MG TAB ONE (14:05)
[2023-08-18] MEDS ORDERED: METHYLPREDNISOLONE 125 MG INJ ONE (14:09)
[2023-08-18] MEDS ORDERED: DIPHENHYDRAMINE 50 MG/ML VIAL ONE (14:09)
--- NOTE | 2023-08-18 16:02 | OP ---
Date of Procedure: 08/18/2023 Surgeon: SIXTO PICKARD Procedures Performed: 1.Selective coronary angiogram. 2.Left heart catheterization. 3.PCI of severe right PDA stenosis, I used 2.75 x 32 mm Synergy drug-eluting stent. Indication: Mkz-BH-vwdowgwit myocardial infarction. Access: Right radial artery 6-Mohawk closed with TR band. Complications: None. Bleeding: Less than 20 mL. Anesthesia: Total sedation time was 1 hour. Description Of Procedure: After risks, benefits, alternatives were explained, patient agreed to proc edure and signed informed consent. The patient was brought into cardiac catheterization laboratory, prepped and draped in the usual sterile fashion. Then, I accessed right radial artery using [employer] c micropuncture kit, placed a 6-Mohawk Slender sheath and took 5-Mohawk [place] 4.0 catheter over J-wir e into the aortic root, engaged left main and right coronary artery, took standard views and the cath eter was pushed over the wire into the LV, measured the LVEDP. Pullback did not record any significa nt gradient. Then I removed the catheter and I exchanged for 6-Mohawk JR4 guide, engaged the RCA, se nt the Runthrough wire into the RCA and passing the area of the stenosis of the PDA and systemic hepa rin was given to assure ACT level above 250 throughout the procedure and then took a 2.5 balloon Comp liant to high pressure, lesion expanded very well and then placed a 2.75 x 32 mm Synergy drug-eluting stent with excellent expansion. Final angiogram was satisfactory and then I removed the catheter, w donna, and sheath and placed TR band with good hemostasis. Findings: 1.Left main normal. 2.LAD; proximal is normal. Widely patent stent into the diagonal branch that is big. LAD after the septal branch there is a MAUREEN-1 flow only where there is focal dissection apparently in the vessel w hich was left alone. It is a very small vessel. It is supplying somewhat small septals and small di agonals, so I left it alone. 3.Left circumflex is normal. 4.RCA; large and dominant, mid 40%, and the PDA has an 80% diffuse, status post successful PCI as ab ove. 5.LVEDP is normal at 7 mmHg. Conclusion: Severe coronary artery disease as above, status post PCI of the PDA. Plan: Continue aspirin, Brilinta, and high-dose statin. Observe overnight and can be discharged dariela orrow. Obtain full echo before discharge. Follow up as an outpatient. SR/MODL Voice ID: [id number] Report ID: [id number]
[2023-08-18] MEDS: ENOXAPARIN 80 MG/0.8 ML SQ SCH (18:00)
[2023-08-18 19:51] VITALS: O2SAT 96
--- NOTE | 2023-08-18 20:55 | PN ---
Date of Progress Note: 08/18/2023 Subjective: Seen by bedside, doing clinically well. No further chest pain. Review of Systems: No chest pain, shortness of breath, orthopnea, cough. No nausea, vomiting, diarrhea. All other syst ems reviewed are negative. Physical Examination: Vital Signs: Reviewed. Head and Neck: Pupils are equal, reactive to light. Intact eye movements. No JVD. No cervical lym phadenopathy. Neck is supple. Thyroid is not enlarged. Lungs: Clear to auscultation bilaterally. No rhonchi, rales, or crackles. No accessory muscle use. Heart: Regular rate and rhythm. No extra sounds. Abdomen: Soft, nontender. Bowel sounds positive. No organomegaly. No masses or hernia. No rigidi ty or rebound. Extremities: No edema, clubbing, or cyanosis. Intact pulses. Skin: No rash. Neurologic: Alert, awake, oriented x3. No acute focal deficits appreciated. Investigations: BUN 19, creatinine 1.08. Hemoglobin 16.3. Assessment/recommendation: 1.Ydw-ZR-alawwvemd myocardial infarction. We will plan to take him back to the [facility] today to re -evaluate the situation, probably do further balloon angioplasty of the LAD and if this is not succes sful, we will plan for OPER[facility] MGR PCI. Continue Brilinta and aspirin and statin. 2.Dyslipidemia. Continue Lipitor 40 mg q.h.s. 3.Hypertension. Blood pressure is controlled. SR/MODL Voice ID: [id number] Report ID: [id number]
[2023-08-19 04:00] LABS: Absolute Lymphocytes (CBC) 0.5 K/uL (0.7-4.9); Absolute Monocytes 0.6 K/uL (0.1-1.3); Absolute Neutrophil 10.9 K/uL (1.8-8.0); Basophils % 0.1 % (0-1.3); Hematocrit 46.1 % (39.6-49.0); Lymphocytes % 4.5 % (15.3-44.8); MCH 33.2 pg (27.0-35.0); MCHC 34.6 g/dL (32.0-36.0); MPV 9.5 fL (7.6-11.3); Monocytes % 5.1 % (3.3-12.3); Neutrophils % 90.3 % (41.7-73.7); Nucleated Red Blood Cells % 0.1 % (0-0); Platelets 230 thou/uL (152-406)
[2023-08-19 04:27] LABS: Albumin/Globulin Ratio 0.7 (1.1-1.8); Anion Gap 8.6 mEq/L (5.0-15.0); Bilirubin Total 0.8 mg/dL (0.2-1.0); Globulin 4.1 g/dL (2.3-3.5); Potassium 4.6 mEq/L (3.5-5.1); Protein, Total 7.1 g/dL (6.4-8.2)
[2023-08-19 08:28] LABS: Blood Morphology Comment NOT SEEN (NOT SEEN); Platelet Estimate ADEQ; White Blood Cell Scan OK (OK)
--- NOTE | 2023-08-19 10:29 | ECHO ---
HEIGHT: 5 ft 9 in WEIGHT: 180 lb 0 oz DATE OF STUDY: 08/18/[address]: Lokesh Ramos 2-DIMENSIONAL: YES M.MODE: NO DOPPLER: YES COLOR FLOW: YES TDS: PORTABLE: DEFINITY: BUBBLE STUDY: DIAGNOSIS: EJECTION FRACTION EVALUATION/ LIMITED STUDY CARDIAC HISTORY: CATHERIZATION: YES SURGERY: PROSTHETIC VALVE: PACEMAKER: MEASUREMENTS (cm) DIASTOLIC (NORMALS) SYSTOLIC (NORMALS) IVSd (0.6-1.2) LA Diam (1.9-4.0) LVEF 45% LVIDd (3.5-5.7) LVIDs (2.0-3.5) %FS % LVPWd (0.6-1.2) Ao Diam (2.0-3.7) 2 DIMENSIONAL ASSESSMENT: RIGHT ATRIUM: LEFT ATRIUM: RIGHT VENTRICLE: LEFT VENTRICLE: TRICUSPID VALVE: MITRAL VALVE: PULMONIC VALVE: AORTIC VALVE: PERICARDIAL EFFUSION: AORTIC ROOT: LEFT VENTRICULAR WALL MOTION: DOPPLER/COLOR FLOW: COMMENTS: 1. LIMIATED VIEWS OBTAINED 2. MID TO DISTAL ANTERIOR, ANTEROSEPTAL MODERATE HYPOKINESIS 3. APICAL AKINESIS 4. EJECTION FRACTION 40-45% TECHNOLOGIST: AYDEE HERNANDEZ
[2023-08-19 12:00] VITALS: BP 103/63; TEMP 97.4
--- NOTE | 2023-08-19 13:13 | P.DS ---
Admission Date: 08/14/23 Discharge Date: 08/19/23 Primary Care Provider: Dr. Beard Disposition: ROUTINE DISCHARGE Discharge Condition: GOOD Reason for Admission: denies pain, symptoms, anxious for tomorrow for repeat LHC with PCI Brief History of Present Illness: Mr. Sanchez is a 67-year-old patient of Dr. Beard, who has a past medical history of iax-nsdnptj-tlehghsfn diabetes, hypertension, hyperlipidemia, and has been experiencing some malaise, left leg shooting pains, intermittent shortness of breath, just a vague feeling of heaviness. He was seen per Dr. Ramos for an elective left cardiac cath today. He was noted to have disease in the diagonal and also 99% occlusion of the LAD. Dr. Ramos was able to correct the diagonal; however, the plaque in the LAD either migrated or the vessel spasmed. The plan is to return to the [facility] tomorrow for a repeat left heart cath. Mr. Sanchez will be monitored in the intensive care unit on Brilinta, atorvastatin, and nitro paste per cardiology. We will follow for medical management overnight while patient awaits [facility]. Hospital Course: Mr. Sanchez is a 67-year-old patient of Dr. Beard, with past medical history of vhz-avojhus-eeuiebmxz diabetes, hypertension, and hyperlipidemia who presented with malaise, left leg shooting pains, intermittent shortness of breath, and a vague feeling of heaviness. He was seen by Dr. Ramos for an elective left cardiac cath. He was noted to have disease in the diagonal and also 99% occlusion of the LAD. Dr. Ramos was able to correct the diagonal; however, the plaque in the LAD either migrated or the vessel spasmed. His troponin [place] 197 [place] [address]55. Cardiology did another cardiac cath on 08/18/23 and placed a stent in the PDA which had 80% stenosis. Pt was advised to continue aspirin, brilinta for at least a year. he was also given atorvasttain. We continued home med for other chronic medical problems. Pt was in NAD prior to discharge. Vital Signs/Physical Exam: Temp Pulse Resp BP Pulse Ox 97.4 F 77 16 103/63 99 08/19/23 12:00 08/19/23 12:00 08/19/23 12:08/19/23 12:00 08/19/23 11:55 Laboratory Data at Discharge: WBC 12.10 thou/uL (4.3-10.9) H 08/19/23 03:00 Hgb 16.0 g/dL (13.6-17.9) 08/19/23 03:00 Hct 46.1 % (39.6-49.0) 08/19/23 03:00 Plt Count 230 thou/uL (152-406) 08/19/23 03:00 PT 11.8 SECONDS (9.5-12.5) 08/18/23 02:57 INR 1.07 08/18/23 02:57 APTT 30.8 SECONDS (24.3-36.9) 08/18/23 02:57 Sodium 134 mEq/L (136-145) L 08/19/23 03:00 Potassium 4.6 mEq/L (3.5-5.1) D 08/19/23 03:00 BUN 22 mg/dL (7-18) H 08/19/23 03:00 Creatinine 1.19 mg/dL (0.70-1.30) 08/19/23 03:00 Glucose 301 mg/dL (74-106) H 08/19/23 03:00 Phosphorus 3.7 mg/dL (2.5-4.9) 08/14/23 16:43 Magnesium 2.4 mg/dL (1.6-2.4) 08/15/23 06:20 Total Bilirubin 0.8 mg/dL (0.2-1.0) 08/19/23 03:00 AST 15 U/L (15-37) 08/19/23 03:00 ALT 34 U/L (16-61) 08/19/23 03:00 Alkaline Phosphatase 65 U/L (45-117) 08/19/23 03:00 Triglycerides 43 mg/dL (<150) 08/14/23 16:43 Cholesterol 226 mg/dL (<200) H 08/14/23 16:43 LDL Cholesterol Direct 157 mg/dL (100-129) H 08/11/23 09:45 HDL Cholesterol 43 mg/dL (40-60) 08/14/23 16:43 Cholesterol/HDL Ratio 5.26 08/14/23 16:43 Home Medications: Ascorbic Acid [Vitamin C*] 500 mg PO DAILY 08/11/23 Docosahexanoic AC/Epa [Fish Oil 1,000 MG*] 1,000 mg PO BID 08/11/23 Empagliflozin [Jardiance] 25 mg PO DAILY 08/11/23 Glimepiride 4 mg PO BID 08/11/23 Losartan/Hydrochlorothiazide [Losartan-Hctz 100-25 mg Tab] 1 each PO DAILY 08/11/23 Metformin HCl 1,000 mg PO BID 08/11/23 Metoprolol Succinate [Toprol Xl*] 100 mg PO DAILY 08/11/23 Semaglutide [Ozempic] 2 mg SQ EVERY 7TH DAY 08/11/23 Vitamin D3/Vitamin K2 (Mk4) [K2 Plus D3 Tablet] 1 each PO DAILY 08/11/23 Aspirin [Aspirin EC] 81 mg PO DAILY 90 Days #90 tab 08/19/23 Atorvastatin Calcium [Lipitor] 40 mg PO BEDTIME 90 Days #90 tab 08/19/23 Ticagrelor [Brilinta*] 90 mg PO BID 90 Days #180 tab 08/19/23 New Medications: Aspirin [Aspirin EC] 81 mg PO DAILY 90 Days #90 tab Ticagrelor [Brilinta*] 90 mg PO BID 90 Days #180 tab Atorvastatin Calcium [Lipitor] 40 mg PO BEDTIME 90 Days #90 tab Physician Discharge Instructions: Continue ad emmett activity. Take aspirin, brilinta and atorvastatin with other home meds. Take aspirin and brilinta for at least 1 year. Follow up with PCP and Cardiology within 1 - 2 weeks Diet: AHA Activity: Ad emmett Followup: Tom Beard, [Primary Care Provider] -
== END 2023-08-19 14:53 | disposition home or self-care (01) | DRG 322 ==
LOC: CCL 08:52 → 3RD-ICU 15:59 → 2ND 08-15 18:49
PROVIDERS: ADMIT Hospitalist; ATTEND Hospitalist
PROC: 027034Z Dilation of Coronary Artery, One Artery with Drug-eluting Intraluminal Device, Percutaneous Approach (ICD-10-PCS; principal; 2023-08-14)
PROC: 02703ZZ Dilation of Coronary Artery, One Artery, Percutaneous Approach (ICD-10-PCS; 2023-08-14)
PROC: 4A023N7 Measurement of Cardiac Sampling and Pressure, Left Heart, Percutaneous Approach (ICD-10-PCS; 2023-08-14)
PROC: B2111ZZ Fluoroscopy of Multiple Coronary Arteries using Low Osmolar Contrast (ICD-10-PCS; 2023-08-14)
PROC: 027034Z Dilation of Coronary Artery, One Artery with Drug-eluting Intraluminal Device, Percutaneous Approach (ICD-10-PCS; 2023-08-18)
PROC: 4A023N7 Measurement of Cardiac Sampling and Pressure, Left Heart, Percutaneous Approach (ICD-10-PCS; 2023-08-18)
PROC: B2111ZZ Fluoroscopy of Multiple Coronary Arteries using Low Osmolar Contrast (ICD-10-PCS; 2023-08-18)
DX: I21.4 Non-ST elevation (NSTEMI) myocardial infarction (principal); E78.5 Hyperlipidemia, unspecified; I12.9 Hypertensive chronic kidney disease with stage 1 through stage 4 chronic kidney disease, or unspecified chronic kidney disease; N18.9 Chronic kidney disease, unspecified; E11.22 Type 2 diabetes mellitus with diabetic chronic kidney disease; I25.110 Atherosclerotic heart disease of native coronary artery with unstable angina pectoris; Z79.84 Long term (current) use of oral hypoglycemic drugs; Z79.899 Other long term (current) drug therapy; Z91.048 Other nonmedicinal substance allergy status
CPT/HCPCS: 36415; 71046; 76937; 80048; 80053; 80061; 82550; 82947; 83735; 84100; 84443; 84484; 85025; 85347; 85610; 85730; 92920; 93005; 93308; 93458; 99152; 99153; C1725; C1893; C9600; J0153; J0461; J1200; J1644; J1650; J1815; J2001; J2250; J2405; J2930; J3010; J7040; J7060; Q9966; Q9967